=== PATIENT | female | born 1955 | race Caucasian/White ===

== ENCOUNTER 2021-06-04 09:24 | Emergency (ER) | payer OTHER ==
[2021-06-04 09:30] VITALS: PULSE 88; RESP 18; TEMP 97.9
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
--- NOTE | 2021-06-04 10:31 | XR ---
EXAMINATION TYPE: XR foot complete LT, 3 views DATE OF EXAM: 06/04/2021 Comparison: None Clinical History: 66-year-old female with lateral sided pain Findings: There is a nondisplaced transverse fracture proximal fifth metatarsal shaft. Bipartite tibial sesamoi d. No additional acute fracture, subluxation, or dislocation seen. Impression: Nondisplaced transverse fracture proximal shaft of the fifth metatarsal. Given location of the fractu re, recommend appropriate orthopedic follow-up to ensure satisfactory healing.
[2021-06-04 11:32] VITALS: BP 118/90
== END 2021-06-04 11:32 | disposition home or self-care (01) ==
LOC: EC 09:24
DX: S92.355A Nondisplaced fracture of fifth metatarsal bone, left foot, initial encounter for closed fracture (principal); I10 Essential (primary) hypertension; V18.0XXA Pedal cycle driver injured in noncollision transport accident in nontraffic accident, initial encounter; Y93.89 Activity, other specified
CPT/HCPCS: 99283

== ENCOUNTER → 2024-10-11 | Day surgery (SDC) | payer MEDICARE, OTHER ==
--- NOTE | 2024-10-18 11:46 | MM ---
Reason for Exam: Post Procedure Mammogram. Risk Values: Cristina 5 year model risk: 1.1%. NCI Lifetime model risk: 3.3%. Tissue Density: Right: The breasts are heterogeneously dense, which may obscure small masses. Pathology Description: Location: 8 o'clock. Needle Type: Mammotome Cores: 4 Pathology Description: Location: 7 o'clock. Marker Left Behind. Needle Type: Mammotome Cores: 4 The procedure of ultrasound guided core biopsy was explained to the patient. Benefits, alternatives, and risks were discussed. An informed consent was then obtained. The patient was placed in supine positioning for imaging and for the procedure. The overlying skin was prepped and draped in usual sterile fashion. Lidocaine buffered with bicarbonate was used as anesthetic into the skin and subcutaneous tissue up to area of concern at each site in the right breast in turn. A: 7:00, 1.1 cm lesion: Under ultrasound guidance, a 13-gauge vacuum-assisted mammotome Elite biopsy gun device was used to obtain 4 core samples. Following this, a Butterfly biopsy clip was left in lesion. B: 8:00, 8 mm lobulated lesion: Under ultrasound guidance, a 13-gauge vacuum-assisted mammotome Elite biopsy gun device was used to obtain 4 core samples. Following this, a Coil biopsy clip was left in lesion. C: 8:00, 3 mm lesion too small to accurately characterize. Located within 2 cm of lesion 'B.' Not biopsied. The patient tolerated the procedure well without any immediate complication. The patient was kept in the radiology department for short stay after the procedure and then discharged home in stable condition. Postprocedure mammogram: The patient was transferred to mammography for physician ordered post procedure mammogram for clip placement verification. Post procedure mammogram demonstrates appropriate placement of clip. 8:00 coil clip corresponds to the centrally located mammographic mass. The 7:00 butterfly clip is located at a posterior depth. IMPRESSION: Successful, uncomplicated ultrasound guided core biopsy of two lesions in the right breast, mammographic correlates. Note a third lesion at 8:00 which was not biopsied given tiny 3 mm size and location within 2 cm of the other 8:00 lesion. Full pathology results to follow. [facility], , 10/11/2024 2:47 PM. Pathology Results: Result: Malignant, Invasive ductal carcinoma. A. RIGHT BREAST, SEVEN O'CLOCK, ULTRASOUND GUIDED CORE BIOPSY: Invasive Grade 2 ductal carcinoma with focal mucinous features (see Surgical Pathology Cancer Case Summary and Comment). B. RIGHT BREAST, EIGHT O'CLOCK, ULTRASOUND GUIDED CORE BIOPSY: Invasive ductal carcinoma with focal mucinous features, Grade 2. (See Surgical Pathology Cancer Case Summary and Comment). Separate fragment of atypical papillary lesion present. Overall Assessment: Malignant Assessment: MG diagnostic mammo RT wo CAD - Right: Known biopsy proven malignancy, BI-RAD 6. Management: Surgical Consultation of the right breast. Electronically signed and approved by: Jose Mckeon M.D. Radiologist
== END ==
LOC: RADUSWWP 12:39
PROVIDERS: ATTEND Internal Medicine
DX: C50.511 Malignant neoplasm of lower-outer quadrant of right female breast (principal); Z17.0 Estrogen receptor positive status [ER+]; Z17.21 Progesterone receptor positive status; Z17.32 Human epidermal growth factor receptor 2 negative status
CPT/HCPCS: 88305; 88342; 88341; 77065; 19083; 19084; A4648

== ENCOUNTER → 2024-10-22 | Outpatient (CLI) | payer MEDICARE ==
[2024-10-22 10:42] VITALS: PULSE 109; RESP 17; TEMP 97.9
--- NOTE | 2024-10-22 11:16 | P.GSCN ---
History of Present Illness Consult date: 10/22/24 Reason for Consult: Invasive ductal carcinoma right breast 7:00 and 8 o'clock position Requesting physician: James Ríos History of present illness: Beena is a 69-year-old female seen in consultation for Dr. Ríos regarding a biopsy-proven right breast invasive ductal carcinoma. She underwent a bilateral screening mammogram on 09-08-2024. This did not reveal any lesions of concern in the left breast but in the right breast several small masses were identified. An ultrasound was recommended. An ultrasound was performed on 09-14-2024. This revealed multiple lesions at 8:00 2 cm from the nipple thought to represent 3 individual lesions. Irregular mass at 8:00 was noted as well as a probable cluster of cysts at 8:00. Biopsy was recommended of the mass and 6-month follow-up of the other areas. The patient on 10-11-2024 underwent an ultrasound-guided core biopsy of the 7 and 8 o'clock position of the right breast. At the 7 o'clock position there was a 1.1 cm lesion and biopsy of this was consistent with invasive grade 2 ductal carcinoma with focal mucinous features Lesion at 8:00 revealed an 8 mm lobulated lesion and a biopsy of this revealed invasive ductal carcinoma with focal mucinous features. Separate fragment of atypical papillary lesion was identified. A third lesion at 8:00 3 mm was too small to accurately characterize. The biopsy at 7:00 had a butterfly clip against the chest wall placed in the biopsy at 8:00 had a coil clip placed. The lesions are 2.7 cm apart. The radiographs were personally reviewed with Dr. Zaragoza and discussed. She did not feel anything in her breast prior to the mammogram. Has never had any surgery on her breast and no breast biopsies. She is not complaining of any nipple discharge or skin changes. She has not had any recent trauma or infection in her breast. She gets mammograms on a yearly basis. Caffeine: occasional nicotien: none chocolate: daily BCP: used for about < 2 years Family History: maternal grandfather: skin cancer paternal aunt: ? breast cancer Hormonal History: menarche: 11 M1 breast fed: no, age at first : 29 menopause: hysterectomy late 40's too ovaries, no hormones after, done for bleeding Surgical History: CELE BSO left hip replacement Medical History: broke left foot hypothyroid high cholesterol osteoporosis Social History; nicotine: none alcohol: none drugs: none Review of Systems - Constitutional Denies fever, Denies weight loss - EENT Eyes: denies blurred vision Ears: deny: decreased hearing, tinnitus Ears, nose, mouth and throat: Denies dysphagia - Breasts bilateral: as per HPI - Cardiovascular Denies chest pain, Denies shortness of breath - Respiratory Denies cough, Denies 7 - Gastrointestinal Reports as per HPI - Genitourinary Genitourinary: Denies dysuria, Denies hematuria Menstruation: Reports post hysterectomy - Musculoskeletal Reports as per HPI - Integumentary Denies rash, Denies unusual bruising - Neurological Denies headaches, Denies syncope - Psychiatric Reports as per HPI - Endocrine Reports as per HPI - Hematologic/Lymphatic Reports as per HPI, Denies easy bleeding, Denies easy bruising Hematologic/Lymphatic Comment(s): takes baby aspirin - Allergic/Immunologic Reports as per HPI Past Medical History Past Medical History: Hyperlipidemia, Hypertension, Osteoarthritis (OA), Thyroid Disorder History of Any Multi-Drug Resistant Organisms: None Reported Past Surgical History: Hysterectomy, Orthopedic Surgery Additional Past Surgical History / Comment(s): Left hip replacement. Past Anesthesia/Blood Transfusion Reactions: No Reported Reaction Past Psychological History: Depression Additional Psychological History / Comment(s): past history, not current Smoking Status: Never smoker Past Alcohol Use History: Rare Past Drug Use History: None Reported Medications and Allergies Home Medications Medication Instructions Recorded Confirmed Type Aspirin [Children's Aspirin] 81 mg PO DAILY 09/23/24 10/22/24 History Cholecalciferol (Vitamin D3) 1,250 mcg PO DAILY 09/23/24 10/22/24 History [Vitamin D3 (1250 Mcg = 50,000 Iu)] Fenofibrate Nanocrystallized 48 mg PO DAILY 09/23/24 10/22/24 History [Fenofibrate] Glucosamine/Chondr Celaya A Sod [Osteo 1 each PO DAILY 09/23/24 10/22/24 History Bi-Flex Caplet] Ibandronate Sodium [Boniva] 150 mg PO QMONTHLY 09/23/24 10/22/24 History Levothyroxine Sodium [Synthroid] 125 mcg PO DAILY 09/23/24 10/22/24 History Losartan Potassium 50 mg PO DAILY 09/23/24 10/22/24 History Simvastatin 40 mg PO DAILY 09/23/24 10/22/24 History Allergies Allergy/AdvReac Type Severity Reaction Status Date / Time No Known Allergies Allergy Verified 10/22/24 10:37 Surgical - Exam Vital Signs Temp Pulse Resp Pulse Ox 97.9 F 109 H 17 99 10/22/24 10:38 10/22/24 10:38 10/22/24 10:38 10/22/24 10:38 - General moderate distress - Eyes normal ocular movement - ENT no hearing loss - Neck trachea midline - Respiratory normal respiratory effort, clear to auscultation - Cardiovascular Rhythm: regular Heart Sounds: normal: S1, S2 - Abdomen Abdomen: soft, non tender, no guarding, no rigid, no rebound - Integumentary normal turgor - Neurologic no disoriented, no combative - Musculoskeletal normal gait - Psychiatric oriented to time, oriented to person, oriented to place, speech is normal, memory intact Breast Exam: 38C Inspection: bilateral grade 2 ptosis, rash right breast near biopsy site; right periareolar site echymosis Right breast palpation: Multi positional exam postbiopsy changes periareolar region, no dominant masses or nodules of concern, upper outer quadrant slight fullness Right axilla: No adenopathy of concern Left breast: Multi positional exam no dominant masses or nodules of concern Left axilla: No adenopathy of concern Results Mammogram and ultrasound personally reviewed and interpreted, discussed with Dr. Gonzáles from radiology Assessment and Plan Assessment: Impression: Stage Ia invasive ductal carcinoma right breast 2 sites at 7 and 8:00, the approximately 3 cm apart from each other Third area of concern was not seen to be able to be biopsied Plan: MRI of the breast Presentation of case at tumor board CC: Dfr. Ríos
== END ==
LOC: WWCWWP 10:27
PROVIDERS: ATTEND Surgery
DX: C50.911 Malignant neoplasm of unspecified site of right female breast (principal)

== ENCOUNTER 2024-12-14 08:18 | Day surgery (SDC) | payer MEDICARE ==
[2024-12-14] MEDS: ACETAMINOPHEN TAB 500 MG TAB PO PRN (09:26)
--- NOTE | 2024-12-14 09:33 | P.NAPBC ---
NAPBC Queries - NAPBC Queries Was patient's case review presented at [facility] tumor board? If no, comment.: Yes Was patient's pathology reviewed at [facility]? If no, comment.: Yes Was breast conservation surgery offered? If no, comment.: Yes Was sentinel node biopsy offered? If no, comment.: Yes Was diagnosis confirmed by percutaneous core biopsy? If no, comment.: Yes Is patient mastectomy patient?: Yes Was a preop referral to reconstructive surgeon offered?: No (ofered but patient declined) Clinical Stage: two sites right breast stage 1A, possible contiguous on MRI [id number] at two sites 7 and 8 OClock
[2024-12-14] MEDS: DEXAMETHASONE SOD PHOSPHATE 4 MG/ML 1 ML VIAL IV ONE (09:34)
[2024-12-14] MEDS: ONDANSETRON 4 MG/2 ML VIAL IVP ONE (09:34)
[2024-12-14] MEDS: LACTATED RINGERS 1,000 ML IV SCH (09:34)
[2024-12-14] MEDS: IV FLUID CONTINUATION 1,000 ML IV ONE ×2 (09:37→14:37)
[2024-12-14] MEDS: MIDAZOLAM 2 MG/2 ML VIAL IV ONE (09:53)
[2024-12-14] MEDS: fentaNYL (PF) 50 MCG/ML 2 ML AMP IVP PRN (09:54)
[2024-12-14] MEDS: HEPARIN SODIUM,PORCINE 5,000 UNIT/ML 1 ML VIAL SQ PRN (10:08)
[2024-12-14] MEDS ORDERED: SUCCINYLCHOLINE CHLORIDE 200 MG/10 ML VIAL IV ONE (10:57)
[2024-12-14] MEDS ORDERED: fentaNYL (PF) 50 MCG/ML 2 ML AMP ONE (10:57)
[2024-12-14] MEDS ORDERED: PROPOFOL 10 MG/ML 20 ML VIAL IV ONE (10:57)
[2024-12-14] MEDS ORDERED: PHENYLEPHRINE-0.9% NACL SYG 1,000 MCG/10 ML SYRINGE ONE (10:57)
[2024-12-14] MEDS ORDERED: SODIUM CHLORIDE 0.9% (PF) 10 ML VIAL ONE (10:57)
[2024-12-14] MEDS ORDERED: HYDROmorphone (PF) 1 MG/ML ONE (10:57)
[2024-12-14] MEDS ORDERED: DEXAMETHASONE SOD PHOSPHATE 4 MG/ML 1 ML VIAL ONE (10:57)
[2024-12-14] MEDS ORDERED: MIDAZOLAM 2 MG/2 ML VIAL ONE (10:57)
[2024-12-14] MEDS ORDERED: LIDOCAINE 1% INJ 10MG/ML (20 ML MDV) ONE (10:57)
[2024-12-14] MEDS ORDERED: ROPIVACAINE 5 MG/ML 30 ML VIAL ONE (10:57)
[2024-12-14] MEDS: METHYLENE BLUE 50 MG/10 ML AMPUL MISCELLANE ONE ×2 (11:15)
--- NOTE | 2024-12-14 11:25 | NM ---
EXAMINATION TYPE: NM sentinel node injection DATE OF EXAM: 12/14/2024 COMPARISON: NONE CLINICAL INDICATION: Female, 69 years old with history of RIGHT BREAST CA; TECHNIQUE AND FINDINGS: The procedure of sentinel lymph node injection was explained to the patient. The benefits, alternatives, and risks were discussed. An informed consent was then obtained. Overlying skin is cleaned with sterile alcohol. Following this, 498 uCi Tc99m Tilmanocept was inject ed in the upper outer aspect of the right nipple intradermally. The patient tolerated the procedure well without any immediate complication. The patient was kept in the radiology department for short stay after the procedure and then taken to surgery for surgical p rocedure what is presumed intraoperative gamma probe will be used for sentinel lymph node detection. IMPRESSION: Right breast radiotracer injection for sentinel node localization as above. [facility], , 12/14/2024 11:22 AM
[2024-12-14] MEDS ORDERED: ONDANSETRON 4 MG/2 ML VIAL IVP PRN (12:55)
[2024-12-14] MEDS ORDERED: NALOXONE 0.4 MG/ML 1 ML VIAL IV PRN (12:55)
[2024-12-14] MEDS ORDERED: HYDROmorphone 1 MG/ML 1 ML SYRINGE IVP PRN (12:55)
--- NOTE | 2024-12-14 12:55 | P.BCAON ---
Date of Procedure: 12/14/24 Preoperative Diagnosis: Right breast invasive ductal carcinoma 2 sites Postoperative Diagnosis: Same Procedure(s) Performed: Right mastectomy right sentinel node biopsy, right axillary mapping with methylene blue Anesthesia: TIGRE Surgeon: Renee Caba Estimated Blood Loss (ml): 10 IV fluids (ml): 600 Pathology: other (Right breast, sentinel node right) Condition: stable Disposition: floor Indications for Procedure: Right breast biopsy-proven invasive ductal carcinoma Operative Findings: Fibrofatty breast tissue Description of Procedure: The patient is a 69-year-old female with a biopsy-proven invasive ductal carcinoma at the 7 and 8 o'clock position of the breast. She opted for a mastectomy and a sentinel node biopsy. Preoperatively periareolar injection of radiotracer was placed. The patient was brought to the operative suite. Following induction of anesthesia the neoprobe was used to interrogate the axilla. Minimal radioactivity was identified in the axilla. Therefore 10 cc of half-strength methylene blue was injected into the periareolar region. The breast was massaged. The right breast and axilla were prepped and draped in a sterile fashion. A superior skin flap was developed. This was carried down to the pectoralis muscle. Hemostasis was attained using the electrocautery device as well as the harmonic scalpel. Following this an inferior skin flap was devel oped. Hemostasis was attained using the electrocautery device. The dissection was performed down to the pectoralis muscle. The breast was brought from medial to lateral off the pectoralis muscle maintaining hemostasis using the electrocautery device and the harmonic scalpel. Dissection was performed to the level of the axilla. Using the neoprobe radioactivity was identified in the right axilla. Dissection was performed down to the site. The patient was noted to have a blue lymph node at that site. That site was resected. The 10-second count on that was 1006. Following this the background count was noted to be 27. No other palpable or radioactive or blue lymph nodes were identified. The wound was well irrigated. Several areas of bleeding were identified and cauterized or controlled using the ed scalpel. 1 vessel was suture-ligated in the axilla. Surgicel in powder form was placed. A #10 JUAN PABLO drain was placed. The drain was secured using nylon suture. The subcutaneous tissue was secured using interrupted 3-0 Vicryl suture. This was followed by running 3-0 Vicryl suture. 4-0 Monocryl suture was placed. 20 cc of 1% lidocaine were used to anesthetize the area. Surgical glue was placed. Sterile dressings were applied. All instrument and sponge counts were correct at the end of the case. The patient tolerated the procedure in stable condition. - Sentinal Node Biopsy Operation performed with curative intent: Yes Tracer(s) used in upfront surgery (non-neoadjuvant): dye, radioactive tracer Tracer(s) used in the neoadjuvant setting: N/A All nodes present at end of dye-filled channel removed: Yes All significantly radioactive nodes were removed: Yes All palpably suspicious nodes were removed: Yes
[2024-12-14] MEDS: LIDOCAINE 1% INJ 10MG/ML (20 ML MDV) SQ ONE ×2 (12:56→13:02)
[2024-12-14] MEDS: HYDROmorphone 0.5 MG/0.5 ML SYRINGE IVP PRN (14:22)
--- NOTE | 2024-12-14 14:33 | P.ANPRN ---
Procedure Note - Anesthesia - Nerve Block Performed Right Erector Spinae Single Time Out Performed: Yes Date of Procedure: 12/14/23 Procedure Start Time: :53 Procedure Stop Time: :59 Location of Patient: PreOp Indication: Acute Post-Operative Pain, Requested by Surgeon Sedation Type: Sedate with meaningful contact maintained Preparation: Sterile Prep Position: Prone Needle Types: Pajunk Needle Gauge: 21 Ultrasound used to visualize needle placement: Yes Ultrasound used to observe medication spread: Yes Blood Aspirated: No Pain Paresthesia on Injection Noted: No Resistance on Injection: Normal Image Stored and Saved: Yes Events: Uneventful and Well Tolerated (Ropivacaine 0.5% 15 cc plus normal saline 10 cc plus dexamethasone 4 mg given at T6 on the right side)
[2024-12-14] MEDS: HEPARIN SODIUM,PORCINE 5,000 UNIT/ML 1 ML VIAL SQ SCH (16:38)
[2024-12-15 00:23] VITALS: RESP 16
[2024-12-15] MEDS: HYDROcodone/APAP 5-325MG 1 EACH TAB PO PRN (00:24)
[2024-12-15] MEDS: DEXTROSE 5%-0.45% NACL 1,000 ML IV SCH (00:32)
[2024-12-15 06:58] LABS: Basophils % (A) 0 %; Eosinophils % (A) 0 %; HCT 39.9 % (34.0-46.0); HGB 12.3 gm/dL (11.4-16.0); Lymphocytes # (A) 1.2 k/uL (1.0-4.8); Lymphocytes % (A) 12 %; MCH 28.2 pg (25.0-35.0); MCHC 30.8 g/dL (31.0-37.0); MCV 91.4 fL (80.0-100.0); Mean Platelet Volume 7.5; Monocytes # (A) 0.6 k/uL (0-1.0); Monocytes % (A) 6 %; Neutrophils # (A) 8.2 k/uL (1.3-7.7); Neutrophils % (A) 80 %; Platelet Count 283 k/uL (150-450); RBC 4.36 m/uL (3.80-5.40); RDW 13.3 % (11.5-15.5); WBC 10.2 k/uL (3.8-10.6)
[2024-12-15 08:22] VITALS: BP 109/67; PULSE 66; TEMP 97.6
[2024-12-15] MEDS ORDERED: FENOFIBRATE 54 MG TAB PO SCH (10:00)
[2024-12-15] MEDS ORDERED: NON FORMULARY DRUG (Cholecalciferol (Vitamin D3) [Vitamin D3 (1250 Mcg = 50,000 Iu)] 1,250 PO SCH (10:00)
[2024-12-15] MEDS ORDERED: ATORVASTATIN 20 MG TAB PO SCH (10:00)
--- NOTE | 2024-12-15 11:11 | P.PN ---
Subjective Progress Note Date: 12/15/24 Principal diagnosis: Right breast multifocal invasive ductal carcinoma Beena is a 69-year-old female status post right mastectomy for multifocal invasive ductal carcinoma. She is postop day #1. White count 10.2. Hemoglobin 12.3. JUAN PABLO drain output minimal. She is tolerating diet without difficulty. Her pain is under control. Objective - Vital Signs Vital signs: Vital Signs Temp 97.6 F 12/15/24 08:00 Pulse 66 12/15/24 08:00 Resp 16 12/15/24 08:00 BP 109/67 12/15/24 08:00 Pulse Ox 96 12/15/24 08:00 FiO2 Intake & Output 12/14/24 12/15/24 12/15/24 18:59 06:59 18:59 Intake Total 1300 Output Total 10 Balance 1290 Weight 80.1 kg Intake: IV 1300 Output: Estimated Blood Loss 10 Other: # Voids 2 - Constitutional General appearance: Present: cooperative - EENT Eyes: Present: EOMI ENT: Present: hearing grossly normal - Neck Neck: Present: normal ROM - Respiratory Respiratory: bilateral: CTA - Cardiovascular Heart sounds: normal: S1, S2 - Integumentary Integumentary Comment(s): Patient right chest wall clean and dry, no evidence of seroma or hematoma JUAN PABLO drain minimal output serous in nature Integumentary: Present: normal turgor - Labs CBC & Chem 7: 12/15/24 06:20 Labs: Abnormal Lab Results - Last 24 Hours (Table) 12/15/24 Range/Units 06:20 MCHC 30.8 L (31.0-37.0) g/dL Neutrophils # 8.2 H (1.3-7.7) k/uL Assessment and Plan Assessment: Impression: Patient doing well postop day #1 Plan: Discharge patient home Follow-up Dr. Gallardo 2 days possible drain removal
[2024-12-16] MEDS ORDERED: LEVOTHYROXINE 125 MCG TAB PO SCH (06:30)
--- NOTE | 2024-12-16 20:12 | P.ANPRN ---
Procedure Note - Anesthesia - Nerve Block Performed Right Erector Spinae Single Time Out Performed: Yes Date of Procedure: 12/14/24 Procedure Start Time: :53 Procedure Stop Time: :59 Location of Patient: PreOp Indication: Acute Post-Operative Pain, Requested by Surgeon Sedation Type: Sedate with meaningful contact maintained Preparation: Sterile Prep Position: Prone Needle Types: Pajunk Needle Gauge: 21 Ultrasound used to visualize needle placement: Yes Ultrasound used to observe medication spread: Yes Blood Aspirated: No Pain Paresthesia on Injection Noted: No Resistance on Injection: Normal Image Stored and Saved: Yes Events: Uneventful and Well Tolerated (Ropivacaine 0.5% 15 cc plus normal saline 10 cc plus dexamethasone 4 mg given at T6 on the right side)
== END 2024-12-15 12:10 | disposition home or self-care (01) ==
LOC: OR 08:18 → 4FBP 13:34 → OR 12-15 12:10
PROVIDERS: ATTEND Surgery
DX: D05.11 Intraductal carcinoma in situ of right breast (principal); I10 Essential (primary) hypertension; E78.2 Mixed hyperlipidemia; E03.9 Hypothyroidism, unspecified; E83.52 Hypercalcemia; M19.90 Unspecified osteoarthritis, unspecified site; R73.03 Prediabetes; M81.0 Age-related osteoporosis without current pathological fracture; Z89.622 Acquired absence of left hip joint; Z90.710 Acquired absence of both cervix and uterus; Z01.89 Encounter for other specified special examinations; Z79.890 Hormone replacement therapy; Z79.82 Long term (current) use of aspirin; Z79.899 Other long term (current) drug therapy
CPT/HCPCS: 64999; 85025; 88342; 88307; 88309; 88341; 38792; 38500; 19303; A9520; J2250; J0330; J1644 ×2; J1100; J0690; J2405; J2003; J3010; J1171 ×2; J2795; J2704; Q9968; J2371

== ENCOUNTER → 2024-12-17 | Outpatient (CLI) | payer MEDICARE ==
[2024-12-17 12:03] VITALS: BP 158/93; PULSE 108; RESP 16; TEMP 98.9
--- NOTE | 2024-12-17 12:32 | P.BCPO ---
Progress Note - Text Progress Note Date: 12/17/24 Beena is a 69 year old female status post right mastectomy on 12 14 24. Postoperatively she is doing well. Her JUAN PABLO drain is not putting anything out. Lungs: Clear Heart: Regular rate and rhythm Incision: Clean and dry Seroma under flap Impression: Patient doing well postop pathology is pending JUAN PABLO drain is not working Plan: Remove JUAN PABLO drain Aspirate seroma JUAN PABLO drain was removed and upon removal there was serous fluid which came out from the JUAN PABLO site Following informed consent the area of concern of seroma was prepped using alcohol. An 18-gauge needle and a 20 cc syringe was used to aspirate 40 cc of dark-colored fluid. There appeared to be complete resolution of the seroma. The patient tolerated the procedure in stable condition. Plan: Follow-up next week Post Op Education - Post Op Education Post Op Education Provided Date: 12/17/24
== END ==
LOC: WWCWWP 11:31
PROVIDERS: ATTEND Surgery
DX: Z90.11 Acquired absence of right breast and nipple (principal)

== ENCOUNTER → 2024-12-23 | Outpatient (CLI) | payer MEDICARE ==
[2024-12-23 10:44] VITALS: BP 147/94; PULSE 97; RESP 17; TEMP 97.6
--- NOTE | 2024-12-23 10:58 | P.PN ---
Subjective Progress Note Date: 12/23/24 12-23-24 Beena is a 69 year old female status post right mastectomy on 12 14 24. Postoperatively she is doing well. Her JUAN PABLO drain was removed. Tumor multifocal invasive ductal cancer, two sites with DCIS. 5 nodes all (-). Largest tumor site 4 cm second site 18mm and DCIS 11 mm. Lungs: Clear Heart: Regular rate and rhythm Incision: Clean and dry Seroma under flap Impression: Patient doing well postop pathology is pending Plan: Aspirate seroma Appointment medical oncology/Oncotype to be done on the specimen Appointment radiation oncology Following informed consent the area of concern of seroma was prepped using alcohol. An 18-gauge needle and a 20 cc syringe was used to aspirate cc of straw-colored fluid. There appeared to be complete resolution of the seroma. The patient tolerated the procedure in stable condition. Plan: Manage Follow-up radiation oncology Follow-up here in 1 week Oncotype to be performed on the specimen Additional CC's: James Ríos Objective - Vital Signs Vital signs: Intake & Output 12/22/24 12/23/24 12/23/24 18:59 06:59 18:59 Weight 77.111 kg Assessment and Plan Assessment: Plan: follow up medical oncology follow up medical oncology follow up next week here CC: DR. Ríos
== END ==
LOC: WWCWWP 09:58
PROVIDERS: ATTEND Surgery
DX: D05.11 Intraductal carcinoma in situ of right breast (principal); Z12.31 Encounter for screening mammogram for malignant neoplasm of breast; Z90.11 Acquired absence of right breast and nipple

== ENCOUNTER → 2024-12-30 | Outpatient (CLI) | payer MEDICARE ==
[2024-12-30 14:34] VITALS: BP 137/85; PULSE 77; RESP 16; TEMP 98.3
--- NOTE | 2024-12-30 14:50 | P.PN ---
Subjective Progress Note Date: 12/30/24 12/30/24 Beena is a 69 year old female status post right mastectomy on 12 14 24. Postoperatively she is doing well. Her JUAN PABLO drain was removed. Tumor multifocal invasive ductal cancer, two sites with DCIS. 5 nodes all (-). Largest tumor site 4 cm second site 18mm and DCIS 11 mm. Lungs: Clear Heart: Regular rate and rhythm Incision: Clean and dry Seroma under flap Impression: Patient doing well postop pathology is pending Plan: Aspirate seroma Appointment medical oncology/Oncotype to be done on the specimen Appointment radiation oncology Following informed consent the area of concern of seroma was prepped using alcohol. An 18-gauge needle and a 20 cc syringe was used to aspirate 100 cc of straw-colored fluid. There appeared to be complete resolution of the seroma. The patient tolerated the procedure in stable condition. Plan: Manage Follow-up radiation oncology on 01-11-25 Follow-up here in 1 week Oncotype to be performed on the specimen follow up medical oncology Dr. Frost seen and waiting for the oncotype CC: DR. Ríos Additional CC's: James Ríos Objective - Vital Signs Vital signs: Vital Signs Temp 98.3 F 12/30/24 14:31 Pulse 77 12/30/24 14:31 Resp 16 12/30/24 14:31 BP 137/85 12/30/24 14:31 Pulse Ox 97 12/30/24 14:31 FiO2 Intake & Output 12/29/24 12/30/24 12/30/24 18:59 06:59 18:59 Weight 77.111 kg
== END ==
LOC: WWCWWP 13:25
PROVIDERS: ATTEND Surgery
DX: Z90.12 Acquired absence of left breast and nipple (principal)

== ENCOUNTER → 2025-01-06 | Outpatient (CLI) | payer MEDICARE ==
[2025-01-06 08:46] VITALS: BP 146/86; PULSE 75; RESP 16; TEMP 97.9
--- NOTE | 2025-01-06 09:25 | P.PN ---
Subjective Progress Note Date: 01/06/25 01/06/25 Beena is a 69 year old female status post right mastectomy on 12 14 24. Postoperatively she is doing well. Her JUAN PABLO drain was removed. Tumor multifocal invasive ductal cancer, two sites with DCIS. 6 nodes all (-). Largest tumor site 4 cm second site 18mm and DCIS 11 mm. Lungs: Clear Heart: Regular rate and rhythm Incision: Clean and dry Seroma under flap 12-30-24 seroma aspirated 100 cc Impression: Patient doing well postop Plan: Aspirate seroma Appointment medical oncology/Oncotype to be done on the specimen Appointment radiation oncology Following informed consent the area of concern of seroma was prepped using alcohol. An 18-gauge needle and a 20 cc syringe was used to aspirate 320 cc of straw-colored fluid. There appeared to be complete resolution of the seroma. The patient tolerated the procedure in stable condition. Plan: Manage Follow-up radiation oncology on 01-11-25 Follow-up here in 2 weeks Oncotype to be performed on the specimen/ done was 6 follow up medical oncology Dr. Frost to be seen again CC: DR. Ríos Objective - Vital Signs Vital signs: Vital Signs Temp 97.9 F 01/06/25 08:44 Pulse 75 01/06/25 08:44 Resp 16 01/06/25 08:44 BP 146/86 01/06/25 08:44 Pulse Ox 98 01/06/25 08:44 FiO2 Intake & Output 01/05/25 01/06/25 01/06/25 18:59 06:59 18:59 Weight 77.111 kg
== END ==
LOC: WWCWWP 08:27
PROVIDERS: ATTEND Surgery
DX: Z90.11 Acquired absence of right breast and nipple (principal)

== ENCOUNTER → 2025-01-13 | Outpatient (CLI) | payer MEDICARE ==
[2025-01-13 10:34] VITALS: BP 117/69; PULSE 100; RESP 16; TEMP 97.8
--- NOTE | 2025-01-13 10:43 | P.PN ---
Subjective Progress Note Date: 01/13/25 01/13/25 Beena is a 69 year old female status post right mastectomy on 12 14 24. Postoperatively she is doing well. Her JUAN PABLO drain was removed. Tumor multifocal invasive ductal cancer, two sites with DCIS. 6 nodes all (-). Largest tumor site 4 cm second site 18mm and DCIS 11 mm. Lungs: Clear Heart: Regular rate and rhythm Incision: Clean and dry Seroma under flap 12-30-24 seroma aspirated 100 cc 01-06-25 seeroma 320 cc aspirated 01-13-25: seroma 275 CC aspirated Impression: Patient doing well postop Plan: Aspirate seroma Appointment medical oncology/Oncotype to be done on the specimen Appointment radiation oncology/she met with radiation oncology and does not need any radiation therapy. Following informed consent the area of concern of seroma was prepped using alcohol. An 18-gauge needle and a 20 cc syringe was used to aspirate 275 cc of straw-colored fluid. There appeared to be complete resolution of the seroma. The patient tolerated the procedure in stable condition. Plan: Manage Follow-up radiation oncology on 01-11-25 done no radiation needed Follow-up here in 1 weeks Oncotype to be performed on the specimen/ done was 6; no chemotherapy follow up medical oncology Dr. Frost to be seen again CC: DR. Ríos
== END ==
LOC: WWCWWP 08:39
PROVIDERS: ATTEND Surgery
DX: D05.10 Intraductal carcinoma in situ of unspecified breast (principal); Z90.11 Acquired absence of right breast and nipple

== ENCOUNTER → 2025-01-20 | Outpatient (CLI) | payer MEDICARE ==
[2025-01-20 09:01] VITALS: BP 127/85; PULSE 102; RESP 16; TEMP 97.9
--- NOTE | 2025-01-20 09:35 | P.PN ---
Subjective Progress Note Date: 01/20/25 Principal diagnosis: infected seroma 01-20-25 Beena is a 69 year old female status post right mastectomy on 12 14 24. Postoperatively she is doing well. Tumor multifocal invasive ductal cancer, two sites with DCIS. 6 nodes all (-). Largest tumor site 4 cm second site 18mm and DCIS 11 mm. This notice some erythema/ pink of the medial aspect of the mastectomy site, and she has swelling again consistent with a seroma. She is not complaining of any fever or chills. oncotype [address] Frost reviewed: 12-27-24; adjuvant hormone therapy and possible CDK inhibitor Lungs: Clear Heart: Regular rate and rhythm Incision: Clean and dry Seroma under flap 12-30-24 seroma aspirated 100 cc 01-06-25 seeroma 320 cc aspirated 01-13-25: seroma 275 CC aspirated 01-20-25 purulent tissue 125 cc aspirated, resolution fluid Impression: post op infected seroma right breast Plan: Specimen was 6 she does not need any chemotherapy Keflex 500 mg 1 p.o. 4 times daily for 10 days Aspirate seroma Cultures obtained on fluid Follow-up next week Oral antibiotics If she does not respond to the oral antibiotic she will be seen in the emergency room, if necessary we would do I&D of the area in the operating room however on today's evaluation the fluid was aspirated and we will give an attempt of oral antibiotic therapy Appointment radiation oncology/she met with radiation oncology and does not need any radiation therapy. Following informed consent the area of concern of seroma was prepped using alcohol. An 18-gauge needle and a 20 cc syringe was used to aspirate 125 cc of turbid fluid there appeared to be complete resolution of the seroma. The patient tolerated the procedure in stable condition. CC: DR. Ríos Additional CC's: James Ríos Objective - Vital Signs Vital signs: Vital Signs Temp 97.9 F 01/20/25 08:59 Pulse 102 H 01/20/25 08:59 Resp 16 01/20/25 08:59 BP 127/85 01/20/25 08:59 Pulse Ox 95 01/20/25 08:59 FiO2 Intake & Output 01/19/25 01/20/25 01/20/25 18:59 06:59 18:59 Weight 77.111 kg
== END ==
LOC: WWCWWP 08:32
PROVIDERS: ATTEND Surgery
DX: L76.34 Postprocedural seroma of skin and subcutaneous tissue following other procedure (principal); Z85.3 Personal history of malignant neoplasm of breast; Z90.13 Acquired absence of bilateral breasts and nipples
CPT/HCPCS: 87070; 87075; 87205

== ENCOUNTER 2025-01-21 18:31 | Inpatient (IN) | payer MEDICARE ==
[2025-01-21] MEDS ORDERED: VANCOMYCIN IV PER PHARMACY 1 EACH MISC MISCELLANE PRN (19:31)
--- NOTE | 2025-01-21 19:37 | ED ---
General Adult HPI - General Chief complaint: Recheck/Abnormal Lab/Rx Stated complaint: post op infection Time Seen by Provider: 01/21/25 18:55 Source: patient, RN notes reviewed, old records reviewed Mode of arrival: ambulatory - History of Present Illness Initial comments: This is a 69-year-old female who presents to the emergency department complaining of of infection of the right breast. Patient had a mastectomy about 5 weeks ago and since then she has had to have the breast drained multiple times now its more red and tender and continues to drain. Patient states she started Keflex yesterday but is getting worse so she decided come to the emergency department. Patient states she has had a low-grade fever. Patient denies any chest pain difficulty breathing shortness of breath. Patient denies any other symptoms at this time. - Related Data Home Medications Medication Instructions Recorded Confirmed Aspirin [Children's Aspirin] 81 mg PO DAILY 09/23/24 01/21/25 Cholecalciferol (Vitamin D3) 1,250 mcg PO DAILY 09/23/24 01/21/25 [Vitamin D3 (1250 Mcg = 50,000 Iu)] Glucosamine/Chondr Celaya A Sod [Osteo 1 each PO DAILY 09/23/24 01/21/25 Bi-Flex Caplet] Levothyroxine Sodium [Synthroid] 125 mcg PO MOTUTHFRSA 09/23/24 01/21/25 Losartan Potassium 50 mg PO DAILY 09/23/24 01/21/25 Simvastatin 40 mg PO DAILY 09/23/24 01/21/25 Flaxseed Oil 1 dose PO DAILY 12/09/24 01/21/25 Unk Inflammation 95 1 dose PO DAILY 12/09/24 01/21/25 Zzzquil 5 ml PO HS PRN 12/09/24 01/21/25 Previous Rx's Medication Instructions Recorded Cephalexin [Keflex] 500 mg PO Q6HR 1 Days #40 cap 01/20/25 Allergies Allergy/AdvReac Type Severity Reaction Status Date / Time No Known Allergies Allergy Verified 01/21/25 18:50 Review of Systems ROS Statement: Those systems with pertinent positive or pertinent negative responses have been documented in the HPI. ROS Other: All systems not noted in ROS Statement are negative. Past Medical History Past Medical History: Cancer, Hyperlipidemia, Hypertension, Musculoskeletal Disorder, Osteoarthritis (OA), Thyroid Disorder Additional Past Medical History / Comment(s): Back pain, rightt breast cancer 10/22/24, had mastectomy. osteoporosis. History of Any Multi-Drug Resistant Organisms: None Reported Past Surgical History: Breast Surgery, Hysterectomy, Joint Replacement Additional Past Surgical History / Comment(s): Left hip replacement, colonoscopy, right mastectomy. Past Anesthesia/Blood Transfusion Reactions: No Reported Reaction Past Psychological History: Depression Smoking Status: Never smoker Past Alcohol Use History: None Reported Past Drug Use History: None Reported - Past Family History Father Family Medical History: COPD Additional Family Medical History / Comment(s): Emphysema- smoker. General Exam - General Exam Comments Initial Comments: GENERAL: Patient is well-developed and well-nourished. Patient is nontoxic and well- hydrated and is in mild distress. ENT: Neck is soft and supple. No significant lymphadenopathy is noted. Oropharynx is clear. Moist mucous membranes. Neck has full range of motion without eliciting any pain. EYES: The sclera were anicteric and conjunctiva were pink and moist. Extraocular movements were intact and pupils were equal round and reactive to light. Eyelids were unremarkable. PULMONARY: Unlabored respirations. Good breath sounds bilaterally. No audible rales rhonchi or wheezing was noted. CARDIOVASCULAR: There is a regular rate and rhythm without any murmurs gallops or rubs. ABDOMEN: Soft and nontender with normal bowel sounds. SKIN: Patient has an incision on the left breast that is red draining purulent drainage and very tender to palpate is also swollen NEUROLOGIC: Patient is alert and oriented x3. Cranial nerves II through XII are grossly intact. Motor and sensory are also intact. Normal speech, volume and content. Symmetrical smile. MUSCULOSKELETAL: Normal extremities with adequate strength and full range of motion. LYMPHATICS: No significant lymphadenopathy is noted PSYCHIATRIC: Normal psychiatric evaluation. Course Vital Signs 01/21/25 18:45 Temperature 99.1 F Pulse Rate 91 Respiratory 18 Rate Blood Pressure 146/81 O2 Sat by Pulse 95 Oximetry Medical Decision Making - Medical Decision Making EKG is interpreted by myself. EKG shows sinus rhythm at 86 bpm TN interval is 170 QRS is 80 QT interval 347 QTc is 390. Patient's EKG shows no ST segment elevation or depression. Was pt. sent in by a medical professional or institution (, PA, AIRCRAFT MECHANIC, urgent care, hospital, or prison...) When possible be specific @ -No Did you speak to anyone other than the patient for history (EMS, parent, family, police, friend...)? What history was obtained from this source @ -No Did you review nursing and triage notes (agree or disagree)? Why? @ -I reviewed and agree with nursing and triage notes Were old charts reviewed (outside hosp., previous admission, EMS record, old EKG, old radiological studies, urgent care reports/EKG's, prison records)? Report findings @ -No old charts were reviewed Differential Diagnosis? @ -Cellulitis, abscess, postop infection, this is not an all-inclusive list EKG interpreted by me (3pts min.). @ -As above X-rays interpreted by me (1pt min.). @ -None done CT interpreted by me (1pt min.). @ -None done U/S interpreted by me (1pt. min.). @ -None done What testing was considered but not performed or refused? (CT, X-rays, U/S, labs)? Why? @ -None What meds were considered but not given or refused? Why? @ -None Did you discuss the management of the patient with other professionals (professionals i.e. , PA, AIRCRAFT MECHANIC, lab, RT, psych nurse, social sciences instructor, periodicals clerk, te acher, bank operations officer, foster care case manager)? Give summary @ -I spoke with Dr. Kirkpatrick he agreed to admit the patient admit the patient wrote admitting orders Was smoking cessation discussed for >3mins.? @ -No Was critical care preformed (if so, how long)? @ -No Were there social determinants of health that impacted care today? How? (Homelessness, low income, unemployed, alcoholism, drug addiction, transpo rtation, low edu. Level, literacy, decrease access to med. care, fdc, rehab)? @ -No Was there de-escalation of care discussed even if they declined (Discuss DNR or withdrawal of care, Hospice)? DNR status @ -No What co-morbidities impacted this encounter? (DM, HTN, Smoking, COPD, CAD, Cancer, CVA, ARF, Chemo, Hep., AIDS, mental health diagnosis, sleep apnea, morbid obesity)? @ -None Was patient admitted / discharged? Hospital course, mention meds given and route, prescriptions, significant lab abnormalities, going to OR and other pertinent info. @ -Patient had an infection of the right breast it was draining purulent fluid. Cultures were taken. Patient was started on vancomycin and Rocephin Undiagnosed new problem with uncertain prognosis? @ -No Drug Therapy requiring intensive monitoring for toxicity (Heparin, Nitro, Insulin, Cardizem)? @ -No Were any procedures done? @ -No Diagnosis/symptom? @ -Postop cellulitis with abscess Acute, or Chronic, or Acute on Chronic? @ -Acute Uncomplicated (without systemic symptoms) or Complicated (systemic symptoms)? @ -Complicated Side effects of treatment? @ -No Exacerbation, Progression, or Severe Exacerbation? @ -No Poses a threat to life or bodily function? How? (Chest pain, USA, CT, pneumonia, PE, COPD, DKA, ARF, appy, cholecystitis, CVA, Diverticulitis, Homicidal, Suicidal, threat to staff... and all critical care pts) @ -Yes this could lead to sepsis and endorgan dysfunction - Lab Data Result diagrams: 01/21/25 20:04 01/21/25 20:04 Lab Results 01/21/25 01/21/25 01/21/25 Range/Units 20:04 20:04 20:04 WBC 9.3 (3.8-10.6) k/uL RBC 4.38 (3.80-5.40) m/uL Hgb 12.4 (11.4-16.0) gm/dL Hct 38.9 (34.0-46.0) % MCV 88.9 (80.0-100.0) fL MCH 28.4 (25.0-35.0) pg MCHC 31.9 (31.0-37.0) g/dL RDW 13.0 (11.5-15.5) % Plt Count 486 H (150-450) k/uL MPV 7.2 Neutrophils % 68 % Lymphocytes % 21 % Monocytes % 5 % Eosinophils % 3 % Basophils % 0 % Neutrophils # 6.2 (1.3-7.7) k/uL Lymphocytes # 2.0 (1.0-4.8) k/uL Monocytes # 0.5 (0-1.0) k/uL Eosinophils # 0.3 (0-0.7) k/uL Basophils # 0.0 (0-0.2) k/uL Sodium 139 (137-145) mmol/L Potassium 4.3 (3.5-5.1) mmol/L Chloride 102 (98-107) mmol/L Carbon Dioxide 27 (22-30) mmol/L Anion Gap 10 mmol/L BUN 18 H (7-17) mg/dL Creatinine 0.77 (0.52-1.04) mg/dL Est GFR (CKD-EPI)AfAm >90 (>60 ml/min/1.73 sqM) Est GFR (CKD-EPI)NonAf 78 (>60 ml/min/1.73 sqM) Glucose 109 H (74-99) mg/dL Plasma Lactic Acid Sher 1.0 (0.7-2.0) mmol/L Calcium 10.5 H (8.4-10.2) mg/dL Total Bilirubin 0.4 (0.2-1.3) mg/dL AST 28 (14-36) U/L ALT 31 (4-34) U/L Alkaline Phosphatase 81 (38-126) U/L Total Protein 7.5 (6.3-8.2) g/dL Albumin 4.2 (3.5-5.0) g/dL Disposition Clinical Impression: Postoperative infection of breast incision Disposition: ADMITTED IP TO THIS HOSP Referrals: James Ríos MD [Primary Care Provider] - 1-2 days Time of Disposition: 20:48
[2025-01-21] MEDS: cefTRIAXone IN SWFI 1,000 MG/10 ML SYRINGE IVP STA (20:10)
[2025-01-21] MEDS: LACTATED RINGERS 1,000 ML IV SCH (20:11)
[2025-01-21] MEDS: VANCOMYCIN 1,500 MG in SODIUM CHLORIDE 0.9% 500 ML 500 ML IVPB ONE (20:11)
[2025-01-21 20:32] LABS: Basophils % (A) 0 %; Eosinophils # (A) 0.3 k/uL (0-0.7); Eosinophils % (A) 3 %; HCT 38.9 % (34.0-46.0); HGB 12.4 gm/dL (11.4-16.0); Lymphocytes % (A) 21 %; MCH 28.4 pg (25.0-35.0); MCHC 31.9 g/dL (31.0-37.0); MCV 88.9 fL (80.0-100.0); Mean Platelet Volume 7.2; Monocytes # (A) 0.5 k/uL (0-1.0); Monocytes % (A) 5 %; Neutrophils # (A) 6.2 k/uL (1.3-7.7); Neutrophils % (A) 68 %; Platelet Count 486 k/uL (150-450); RBC 4.38 m/uL (3.80-5.40); WBC 9.3 k/uL (3.8-10.6)
[2025-01-21 20:35] LABS: ALT 31 U/L (4-34); AST 28 U/L (14-36); African American GFR (CKD) >90 (>60 ml/min/1.73 sqM); Albumin 4.2 g/dL (3.5-5.0); Alkaline Phosphatase 81 U/L (38-126); Anion Gap 10 mmol/L; Blood Urea Nitrogen 18 mg/dL (7-17); Calcium 10.5 mg/dL (8.4-10.2); Carbon Dioxide 27 mmol/L (22-30); Chloride 102 mmol/L (98-107); Glucose 109 mg/dL (74-99); Non-African American GFR(CKD) 78 (>60 ml/min/1.73 sqM); Potassium 4.3 mmol/L (3.5-5.1); Sodium 139 mmol/L (137-145); Total Bilirubin 0.4 mg/dL (0.2-1.3); Total Protein 7.5 g/dL (6.3-8.2)
[2025-01-21] MEDS: SODIUM CHLORIDE 0.9% 1,000 ML IV ONE (21:59)
[2025-01-22 06:01] LABS: INR 0.9 (<1.2); Partial Thromboplastin Time 24.3 sec (22.0-30.0); Prothrombin Time 10.5 sec (10.0-12.5)
[2025-01-22 06:02] LABS: African American GFR (CKD) >90 (>60 ml/min/1.73 sqM); Non-African American GFR(CKD) >90 (>60 ml/min/1.73 sqM)
[2025-01-22] MEDS: VANCOMYCIN 1,250 MG in SODIUM CHLORIDE 0.9% 250 ML IVPB SCH (08:50)
[2025-01-22] MEDS ORDERED: HYDROmorphone 0.5 MG/0.5 ML SYRINGE IVP PRN (15:17)
[2025-01-22] MEDS: LEVOTHYROXINE 125 MCG TAB PO SCH (15:54)
[2025-01-22] MEDS: ASPIRIN 81 MG PO SCH (15:54)
[2025-01-22] MEDS: HYDROcodone/APAP 5-325MG 1 EACH TAB PO PRN (22:35)
[2025-01-22] MEDS: ATORVASTATIN 20 MG TAB PO SCH (22:35)
[2025-01-22] MEDS: HEPARIN SODIUM,PORCINE 5,000 UNIT/ML 1 ML VIAL SQ SCH (22:36)
--- NOTE | 2025-01-22 23:43 | HP ---
HISTORY AND PHYSICAL CHIEF COMPLAINT: Infection of the right breast. HISTORY OF PRESENT ILLNESS: This is a 69-year-old woman who had a mastectomy 5 weeks ago, who was having some postoperative wound infection because of lack of improvement and increase of drainage. The patient came to [facility] and was admitted for further evaluation and treatment. White count is normal. There is no history of any fever, rigors, or chills. PAST MEDICAL HISTORY: Reviewed and includes history of hypertension, hyperlipidemia, recent surgery as mentioned. Rest of the chart is also reviewed. HOME MEDICATIONS: Simvastatin. Dose and rest of medications reviewed. ALLERGIES: None. FAMILY HISTORY: History of COPD. SOCIAL HISTORY: No history of smoking or alcohol. REVIEW OF SYSTEMS: Fourteen-point review of systems negative except as mentioned earlier. PHYSICAL EXAMINATION: VITAL SIGNS: Pulse is 90, blood pressure 147/98, respirations 18. HEENT: Conjunctivae normal. NECK: No JVD. CARDIOVASCULAR: S1, S2. RESPIRATIONS: Breath sounds diminished at the bases ABDOMEN: Soft and nontender. LEGS: No edema. SKIN: Shows right breast swelling and some drainage also present. LABORATORY DATA: Reviewed. ASSESSMENT: 1. Status post right mastectomy and postoperative wound infection with increased drainage. 2. Mild hypercalcemia. 3. Hypertension. 4. Hyperlipidemia. 5. History of thyroid disorder. 6. Multiple medical issues. RECOMMENDATIONS AND DISCUSSION: This is a 69-year-old woman, who presented with multiple complex medical issues. We will monitor the patient closely. Continue with the current medications. The patient is being started on vancomycin and Rocephin at this time. I will recommend Infectious Disease evaluation. Closely follow up with Surgery. Guarded prognosis because of multiple complex medical conditions. Further recommendations to follow. See orders for further details. MMODL / IJN: [id number] /
[2025-01-23 04:56] LABS: African American GFR (CKD) >90 (>60 ml/min/1.73 sqM); Anion Gap 9 mmol/L; Blood Urea Nitrogen 11 mg/dL (7-17); Calcium 10.2 mg/dL (8.4-10.2); Carbon Dioxide 24 mmol/L (22-30); Chloride 106 mmol/L (98-107); Glucose 105 mg/dL (74-99); Non-African American GFR(CKD) 90 (>60 ml/min/1.73 sqM); Potassium 4.1 mmol/L (3.5-5.1); Sodium 139 mmol/L (137-145)
[2025-01-23] MEDS: PANTOPRAZOLE 40 MG TABLET PO SCH (06:44)
[2025-01-23] MEDS: LOSARTAN 50 MG TAB PO SCH (08:33)
[2025-01-23] MEDS: VANCOMYCIN 1,250 MG in SODIUM CHLORIDE 0.9% 250 ML IVPB SCH (10:23)
[2025-01-23 11:10] LABS: Basophils # (A) 0.05 X 10*3/uL (0.00-0.10); Basophils % (A) 0.7 %; Eosinophils # (A) 0.27 X 10*3/uL (0.04-0.35); HCT 35.8 % (37.2-46.3); HGB 11.1 g/dL (12.0-15.0); Lymphocytes # (A) 2.14 X 10*3/uL (0.90-5.00); MCH 28.1 pg (27.0-32.0); MCV 90.6 FL (80.0-97.0); Mean Platelet Volume 10.5 FL (9.5-12.2); Monocytes # (A) 0.62 X 10*3/uL (0.20-1.00); Monocytes % (A) 9.3 %; NRBC Per 100 WBC 0 X 10*3/uL (0.00-0.01); Neutrophils # (A) 3.59 X 10*3/uL (1.80-7.70); Neutrophils % (A) 53.7 %; Platelet Count 435 X 10*3/uL (140-440); RBC 3.95 X 10*6/uL (4.10-5.20); RDW 13.2 % (11.5-14.5); WBC 6.69 X 10*3/uL (4.50-10.00)
--- NOTE | 2025-01-23 12:32 | P.GSCN ---
History of Present Illness Consult date: 01/23/25 Reason for Consult: Right mastectomy infection History of present illness: Is a 69-year-old female who was admitted to the medical service. Patient underwent mastectomy by Dr. Sami Bradshaw approximately 5 weeks ago. Patient was seen in the office on and found to have cellulitis and swelling of the right chest wall. Patient was placed on oral antibiotics. The swelling worsened. Patient was admitted to hospital for right chest wall n. She has had some drainage. Past Medical History Past Medical History: Cancer, Hyperlipidemia, Hypertension, Musculoskeletal Disorder, Osteoarthritis (OA), Thyroid Disorder Additional Past Medical History / Comment(s): Back pain, rightt breast cancer 10/22/24, had mastectomy. osteoporosis. History of Any Multi-Drug Resistant Organisms: None Reported Past Surgical History: Breast Surgery, Hysterectomy, Joint Replacement Additional Past Surgical History / Comment(s): Left hip replacement, colonoscopy, right mastectomy. Past Anesthesia/Blood Transfusion Reactions: No Reported Reaction Past Psychological History: Depression Additional Psychological History / Comment(s): Past history, not current. Smoking Status: Never smoker Past Alcohol Use History: None Reported Past Drug Use History: None Reported - Past Family History Father Family Medical History: COPD Additional Family Medical History / Comment(s): Emphysema- smoker. Medications and Allergies Home Medications Medication Instructions Recorded Confirmed Type Aspirin [Children's Aspirin] 81 mg PO DIRECTED 09/23/24 01/22/25 History Levothyroxine Sodium [Synthroid] 125 mcg PO MOTUTHFRSA 09/23/24 01/22/25 History Losartan Potassium 50 mg PO DAILY 09/23/24 01/22/25 History Simvastatin 40 mg PO HS 09/23/24 01/22/25 History Cephalexin [Keflex] 500 mg PO Q6HR 01/22/25 01/22/25 History Allergies Allergy/AdvReac Type Severity Reaction Status Date / Time No Known Allergies Allergy Verified 01/22/25 10:08 Surgical - Exam Vital Signs Temp Pulse Resp BP Pulse Ox 99.1 F 91 18 146/81 95 01/21/25 18:45 01/21/25 18:45 01/21/25 18:45 01/21/25 18:45 01/21/25 18:45 - General well developed, well nourished, no distress - Eyes PERRL - ENT normal pinna - Neck no masses - Respiratory Right chest wall shows evidence of inflammatory changes which have improved. There is also some purulent drainage. - Abdomen Abdomen: soft Results - Labs 01/23/25 03:57 01/23/25 03:57 Abnormal Lab Results - Last 24 Hours (Table) 01/23/25 01/23/25 Range/Units 03:57 03:57 RBC 3.95 L (4.10-5.20) X 10*6/uL Hgb 11.1 L (12.0-15.0) g/dL Hct 35.8 L (37.2-46.3) % MCHC 31.0 L (32.0-37.0) g/dL Glucose 105 H (74-99) mg/dL Microbiology - Last 24 Hours (Table) 01/21/25 20:04 Blood Culture - Preliminary Blood 01/21/25 19:31 Gram Stain - Preliminary Breast - Right Wound Culture - Preliminary Diabetes panel 01/23/25 Range/Units 03:57 Sodium 139 (137-145) mmol/L Potassium 4.1 (3.5-5.1) mmol/L Chloride 106 (98-107) mmol/L Carbon Dioxide 24 (22-30) mmol/L BUN 11 (7-17) mg/dL Creatinine 0.67 (0.52-1.04) mg/dL Glucose 105 H (74-99) mg/dL Calcium 10.2 (8.4-10.2) mg/dL Calcium panel 01/23/25 Range/Units 03:57 Calcium 10.2 (8.4-10.2) mg/dL Pituitary panel 01/23/25 Range/Units 03:57 Sodium 139 (137-145) mmol/L Potassium 4.1 (3.5-5.1) mmol/L Chloride 106 (98-107) mmol/L Carbon Dioxide 24 (22-30) mmol/L BUN 11 (7-17) mg/dL Creatinine 0.67 (0.52-1.04) mg/dL Glucose 105 H (74-99) mg/dL Calcium 10.2 (8.4-10.2) mg/dL Adrenal panel 01/23/25 Range/Units 03:57 Sodium 139 (137-145) mmol/L Potassium 4.1 (3.5-5.1) mmol/L Chloride 106 (98-107) mmol/L Carbon Dioxide 24 (22-30) mmol/L BUN 11 (7-17) mg/dL Creatinine 0.67 (0.52-1.04) mg/dL Glucose 105 H (74-99) mg/dL Calcium 10.2 (8.4-10.2) mg/dL Assessment and Plan Plan: Postoperative mastectomy infection. Patient is improving with IV antibiotics. Patient to be reevaluated a by Dr. Sami Bradshaw in the a.m.
[2025-01-23] MEDS: VANCOMYCIN TROUGH DUE 1 EACH MISC MISCELLANE ONE (22:43)
--- NOTE | 2025-01-23 22:55 | P.CONS ---
History of Present Illness - Reason for Consult Consult date: 01/23/25 Right breast cellulitis/abscess Requesting physician: Aditya Rodrigez - Chief Complaint Right breast pain swelling and drainage x days - History of Present Illness Patient is a 69-year-old female with a past medical history significant for hypertension hyperlipidemia osteomyelitis recent diagnosis of right breast cancer and is patient was status post mastectomy patient subsequently did have postop fluid collection in the right breast area that has been drained on multiple occasion last time was on 01/20/2025 and the culture did grew MSSA for the patient has been started on oral Keflex however the patient was able to take only 1 or 2 pills and subsequently presented to the hospital with increasing drainage from the right breast area patient did have mild aching pain without any radiation and denies having any high-grade fever or chills no URI symptoms no chest pain shortness of breath or cough no abdominal pain no diarrhea with the symptoms the patient has been evaluated on presentation to the hospital patient did have low-grade fever of 99.1 degrees for night and has been afebrile since then patient was nontachycardic hypotensive or hypoxic or need f or supplemental oxygen patient did have white count 9.3 creatinine 0.77 electrolytes normal liver enzymes normal patient did have local cultures obtained she was started on vancomycin and Rocephin infectious disease was consulted for further management of antibiotic therapy Review of Systems Positive point and negatives has been mentioned in the HPI, complete review of systems was performed and all other systems are negative Past Medical History Past Medical History: Cancer, Hyperlipidemia, Hypertension, Musculoskeletal Disorder, Osteoarthritis (OA), Thyroid Disorder Additional Past Medical History / Comment(s): Back pain, rightt breast cancer 10/22/24, had mastectomy. osteoporosis. History of Any Multi-Drug Resistant Organisms: None Reported Past Surgical History: Breast Surgery, Hysterectomy, Joint Replacement Additional Past Surgical History / Comment(s): Left hip replacement, colonoscopy, right mastectomy. Past Anesthesia/Blood Transfusion Reactions: No Reported Reaction Past Psychological History: Depression Additional Psychological History / Comment(s): Past history, not current. Smoking Status: Never smoker Past Alcohol Use History: None Reported Past Drug Use History: None Reported - Past Family History Father Family Medical History: COPD Additional Family Medical History / Comment(s): Emphysema- smoker. Medications and Allergies Home Medications Medication Instructions Recorded Confirmed Type Aspirin [Children's Aspirin] 81 mg PO DIRECTED 09/23/24 01/22/25 History Levothyroxine Sodium [Synthroid] 125 mcg PO MOTUTHFRSA 09/23/24 01/22/25 History Losartan Potassium 50 mg PO DAILY 09/23/24 01/22/25 History Simvastatin 40 mg PO HS 09/23/24 01/22/25 History Cephalexin [Keflex] 500 mg PO Q6HR 01/22/25 01/22/25 History Allergies Allergy/AdvReac Type Severity Reaction Status Date / Time No Known Allergies Allergy Verified 01/22/25 10:08 Physical Exam Vitals: Vital Signs Temp Pulse Resp BP Pulse Ox FiO2 01/23/25 07:31 98.1 F 70 17 135/79 95 01/23/25 00:10 98.3 F 75 18 141/81 93 L 01/22/25 21:00 18 01/22/25 19:45 98 F 78 18 126/86 96 01/22/25 14:25 97.8 F 85 16 126/73 95 01/22/25 12:40 95 21 Intake and Output 01/22/25 01/23/25 01/23/25 22:59 06:59 14:59 Intake Total 500 Balance 500 Intake: Oral 500 Other: # Voids 2 4 GENERAL DESCRIPTION: Elderly female lying in bed, no distress. No tachypnea or accessory muscle of respiration use. HEENT: Shows Pallor , no scleral icterus. Oral mucous membrane is dry. No pharyngeal erythema or thrush NECK: Trachea central, no thyromegaly. LUNGS: Unlabored breathing. Clear to auscultation anteriorly. No wheeze or crackle. HEART: S1, S2, regular rate and rhythm. No loud murmur ABDOMEN: Soft, no tenderness , guarding or rigidity, no organomegaly EXTREMITIES: No edema of feet. SKIN: Right breast incision is currently healed did have minimal opening on the midline with minimal surrounding redness and drainage NEUROLOGICAL: The patient is awake, alert, oriented x3, mood and affect normal. Results CBC & Chem 7: 01/24/25 03:35 01/24/25 03:35 Labs: Abnormal Lab Results - Last 24 Hours (Table) 01/23/25 01/23/25 Range/Units 03:57 03:57 RBC 3.95 L (4.10-5.20) X 10*6/uL Hgb 11.1 L (12.0-15.0) g/dL Hct 35.8 L (37.2-46.3) % MCHC 31.0 L (32.0-37.0) g/dL Glucose 105 H (74-99) mg/dL Microbiology - Last 24 Hours (Table) 01/21/25 20:04 Blood Culture - Preliminary Blood 01/21/25 19:31 Gram Stain - Preliminary Breast - Right Wound Culture - Preliminary Assessment and Plan (1) Postoperative infection of breast incision Current Visit: Yes Status: Acute Code(s): T81.49XA - INFECTION FOLLOWING A PROCEDURE, OTHER SURGICAL SITE, INIT SNOMED Code(s): 693996323 Plan: 1patient presented to hospital with right mastectomy site drainage in this patient who did have history of aspiration by the surgeon on 01/20/2025 they did grew MSSA and the patient was started on oral Keflex however she already took 1 of 2 pills before presented to hospital with increasing drainage 2-await surgical evaluation for possible further drainage and deep culture 3-we will wait for the culture done in the ER to be finalized before adjusting antibiotic further 4-for now we will treat with Rocephin and vancomycin pharmacy to dose while waiting for the culture to finalize Question concern answered We will follow on clinical condition and cultures to further adjust medication if needed Thank you for this consultation we will follow the patient along with you Dictation was produced using [employer] dictation software. please excuse any grammatical, word or spelling errors. Time with Patient: Greater than 30
--- NOTE | 2025-01-24 00:06 | PN ---
PROGRESS NOTE DATE OF SERVICE: 01/23/2025 SUBJECTIVE: This is a 69-year-old woman, who was admitted with postoperative infection after right mastectomy, is being closely monitored. No chest pain. No palpitation. The patient is on antibiotics. OBJECTIVE: VITAL SIGNS: Pulse 70, blood pressure 130/76, respirations 17. CHEST: Clear to auscultation. CARDIOVASCULAR: S1, S2. ABDOMEN: Soft. BREAST: Right mastectomy infection present. LABORATORY DATA: Reviewed. ASSESSMENT: 1. Status post right mastectomy and postoperative wound infection with increased drainage. 2. Mild hypercalcemia. 3. Hypertension. 4. Hyperlipidemia. RECOMMENDATIONS AND DISCUSSION: Recommend to continue current management and continue symptomatic treatment. Otherwise, cultures are negative so far. The patient is on Rocephin. We will continue to monitor. Guarded prognosis. Further recommendations to follow. Infectious Disease and Surgery has been consulted. MMMARTINEL / YOBANY: [id number] /
[2025-01-24 04:30] LABS: Basophils % (A) 0 %; Eosinophils # (A) 0.2 k/uL (0-0.7); Eosinophils % (A) 3 %; HCT 35.3 % (34.0-46.0); HGB 11.4 gm/dL (11.4-16.0); Lymphocytes # (A) 1.9 k/uL (1.0-4.8); Lymphocytes % (A) 28 %; MCH 28.6 pg (25.0-35.0); MCHC 32.2 g/dL (31.0-37.0); Mean Platelet Volume 8.3; Monocytes # (A) 0.4 k/uL (0-1.0); Monocytes % (A) 7 %; Neutrophils % (A) 60 %; Platelet Count 334 k/uL (150-450); RBC 3.97 m/uL (3.80-5.40); RDW 13.1 % (11.5-15.5); WBC 6.6 k/uL (3.8-10.6)
[2025-01-24 05:06] LABS: African American GFR (CKD) >90 (>60 ml/min/1.73 sqM); Anion Gap 11 mmol/L; Blood Urea Nitrogen 11 mg/dL (7-17); Calcium 10.3 mg/dL (8.4-10.2); Carbon Dioxide 23 mmol/L (22-30); Chloride 106 mmol/L (98-107); Glucose 104 mg/dL (74-99); Non-African American GFR(CKD) >90 (>60 ml/min/1.73 sqM); Potassium 4.1 mmol/L (3.5-5.1); Sodium 140 mmol/L (137-145)
[2025-01-24 05:29] LABS: RBC Morphology Normal
[2025-01-24] MEDS: LEVOTHYROXINE 125 MCG TAB PO SCH (06:40)
--- NOTE | 2025-01-24 11:32 | P.PN ---
Subjective Progress Note Date: 01/24/25 SURGICAL PROGRESS NOTE CHIEF COMPLAINT: Right mastectomy infection HISTORY OF PRESENT ILLNESS: Patient is status post right mastectomy about [address] Sami Brad[address]. Dr[address] Sami Bradshaw is currently out of town. She will be back tonight with plans for surgery tomorrow for possible incision and drainage. Patient reports pain controlled. She reports that the erythema at the incision site is decreased. She is not having drainage currently. Afebrile. WBC 6.6 PHYSICAL EXAM: VITAL SIGNS: Reviewed. GENERAL: Well-developed in no acute distress. Chest: Right chest wall incision site with mild erythema distally to the incision. No significant drainage noted. Area is firm with palpation NEUROLOGIC: Alert and oriented. Cranial nerves II through XII grossly intact. ASSESSMENT: 1. Right postoperative mastectomy infection PLAN: - Continue antibiotics - N.p.o. after midnight for possible debridement with Dr. Sami Bradshaw tomorrow Physician Electrolytic Etcher note has been reviewed by physician. Signing provider agrees with the documented findings, assessment, and plan of care. Objective - Vital Signs Vital signs: Vital Signs Temp 97.4 F L 01/24/25 07:37 Pulse 80 01/24/25 07:37 Resp 18 01/24/25 07:37 BP 127/85 01/24/25 07:37 Pulse Ox 98 01/24/25 07:37 FiO2 21 01/22/25 12:40 Intake & Output 01/23/25 01/24/25 01/24/25 18:59 06:59 18:59 Other: # Voids 3 2 # Bowel Movements 1 - Labs CBC & Chem 7: 01/24/25 03:35 01/24/25 03:35 Labs: Abnormal Lab Results - Last 24 Hours (Table) 01/24/25 Range/Units 03:35 Glucose 104 H (74-99) mg/dL Calcium 10.3 H (8.4-10.2) mg/dL Microbiology - Last 24 Hours (Table) 01/21/25 20:04 Blood Culture - Preliminary Blood 01/21/25 19:31 Gram Stain - Final Breast - Right Wound Culture - Final Staphylococcus aureus
--- NOTE | 2025-01-24 12:16 | P.PN ---
Subjective Progress Note Date: 01/24/25 Principal diagnosis: Reason for follow-up is right chest wall cellulitis/postmastectomy infection Patient is a 69-year-old female with a past medical history significant for hypertension hyperlipidemia osteomyelitis recent diagnosis of right breast cancer and is patient was status post mastectomy patient subsequently did have postop fluid collection in the right breast area that has been drained on multiple occasion last time was on 01/20/2025 and the culture did grew MSSA now presented to hospital with worsening drainage concerning for cellulitis prompted this consultation. On today's evaluation that is 01/24/2025, patient has been afebrile, patient is breathing comfortably and is currently on room air, patient denies having any chest pain and cough, patient denies nausea vomiting or diarrhea and no abdominal pain pain to the right chest has decreased intensity as well as drainage patient white count 6.6, creatinine 0.63 blood culture negative local culture with MSSA Objective - Vital Signs Vital signs: Vital Signs Temp 97.4 F L 01/24/25 07:37 Pulse 80 01/24/25 07:37 Resp 18 01/24/25 07:37 BP 127/85 01/24/25 07:37 Pulse Ox 98 01/24/25 07:37 FiO2 21 01/22/25 12:40 Intake & Output 01/23/25 01/24/25 01/24/25 18:59 06:59 18:59 Other: # Voids 3 2 # Bowel Movements 1 - Exam GENERAL DESCRIPTION: An elderly female lying in bed in no distress RESPIRATORY SYSTEM: Unlabored breathing , decreased breath sounds at bases HEART: S1 S2 regular rate and rhythm , ABDOMEN: Soft , no tenderness EXTREMITIES: No edema feet - Labs CBC & Chem 7: 01/24/25 03:35 01/24/25 03:35 Labs: Abnormal Lab Results - Last 24 Hours (Table) 01/24/25 Range/Units 03:35 Glucose 104 H (74-99) mg/dL Calcium 10.3 H (8.4-10.2) mg/dL Microbiology - Last 24 Hours (Table) 01/21/25 20:04 Blood Culture - Preliminary Blood 01/21/25 19:31 Gram Stain - Final Breast - Right Wound Culture - Final Staphylococcus aureus Assessment and Plan (1) Postoperative infection of breast incision Current Visit: Yes Status: Acute Code(s): T81.49XA - INFECTION FOLLOWING A PROCEDURE, OTHER SURGICAL SITE, INIT SNOMED Code(s): 050385624 (2) MSSA (methicillin susceptible Staphylococcus aureus) infection Current Visit: Yes Status: Acute Code(s): A49.01 - METHICILLIN SUSCEP STAPH INFECTION, UNSP SITE SNOMED Code(s): 092588624 Plan: 1patient presented to hospital with right mastectomy site drainage in this patient who did have history of aspiration by the surgeon on 01/20/2025 they did grew MSSA and the patient was started on oral Keflex however she already took 1 of 2 pills before presented to hospital with increasing drainage 2-patient has been eval by surgery planning for surgical I&D for tomorrow 3-culture have been finalized with MSSA blood culture negative so far vancomycin Rocephin has been discontinued patient started on cefazolin question concern answered Dictation was produced using [employer] dictation software. please excuse any grammatical, word or spelling errors. Time with Patient: Less than 30
--- NOTE | 2025-01-24 20:45 | P.PN ---
Subjective Progress Note Date: 01/24/25 Principal diagnosis: Cellulitis/resolving abscess right mastectomy site Subjective Progress Note Date: 01-24-25 Principal diagnosis: right breast two sites [id number] invasive ductal cancer 7OClock and 8 OClock; 10-11-24 History of Present Illness Consult date: 12/03/24 Reason for Consult: Invasive ductal carcinoma right breast 7:00 and 8 o'clock position Requesting physician: James Ríos History of present illness: Beena is a 69-year-old female seen initially in consultation for Dr. Ríos regarding a biopsy-proven right breast invasive ductal carcinoma. She underwent a bilateral screening mammogram on 09-08-2024. This did not reveal any lesions of concern in the left breast but in the right breast several small masses were identified. An ultrasound was recommended. An ultrasound was performed on 09-14-2024. This revealed multiple lesions at 8:00 2 cm from the nipple thought to represent 3 individual lesions. Irregular mass at 8:00 was noted as well as a probable cluster of cysts at 8:00. Biopsy was recommended of the mass and 6-month follow-up of the other areas. The patient on 10-11-2024 underwent an ultrasound-guided core biopsy of the 7 and 8 o'clock position of the right breast. At the 7 o'clock position there was a 1.1 cm lesion and biopsy of this was consistent with invasive grade 2 ductal carcinoma with focal mucinous features Lesion at 8:00 revealed an 8 mm lobulated lesion and a biopsy of this revealed invasive ductal carcinoma with focal mucinous features. Separate fragment of atypical papillary lesion was identified. A third lesion at 8:00 3 mm was too small to accurately characterize. The biopsy at 7:00 had a butterfly clip against the chest wall placed in the biopsy at 8:00 had a coil clip placed. The lesions are 2.7 cm apart. The radiographs were personally reviewed with Dr. Zaragoza and discussed. She did not feel anything in her breast prior to the mammogram. Had never had any surgery on her breast and no breast biopsies. She was not complaining of any nipple discharge or skin changes. She had not had any recent trauma or infection in her breast. She gets mammograms on a yearly basis. note radiation oncology 11-16-24, ready for surgery and will discuss radiation depending on the final pathology medical oncology: 10-25-24; consider oncotype to determine if will recommend chemotherapy, will recommend adjuvant hormone therapy; oncotype was 6 The patient's had an MRI it revealed that the area of concern in the right breast may span for 5.5 cm. This was discussed with the patient and her family. The patient was initially planning on having a needle localization lumpectomy but then she decided she would like to have a mastectomy. She understands that the MRI may be more sensitive than specific and may actually not to be a 5.5 cm area of tumor however she would still like to proceed with a mastectomy. She was given the option of seeing a plastic surgeon however this would delay her surgery and she would like to have a mastectomy with the option of reconstr uction at a later time but would not like to delay the surgery to see a plastic surgeon. Additionally pre-operatively I discussed with her the possibility of getting an Oncotype and doing neoadjuvant chemotherapy to shrink the tumor and possibly being able to do a lumpectomy and again she declined this possibility. Therefore after discussion with the patient, her , and her daughter, in detail regarding the above she wished to proceed with a right mastectomy, right sentinel node biopsy possible axillary node dissection. The patient on 12 14 24 underwent a right mastectomy and sentinel node biopsy. This was a skin sparing mastectomy secondary to the possibility the patient may want reconstruction in the future. The tumor was noted to be multifocal with at least 2 sites in DCIS. 6 nodes were removed all were negative. The largest tumor site was 4 cm and the second site 18 mm, DCIS was 11 mm. The patient had multiple episodes of seroma development at the mastectomy site. These were aspirated without difficulty. Recently she noticed some erythema at the medial aspect of the mastectomy site and had swelling consistent with a seroma. This was aspirated on 01 20 25 and 125 cc of fluid was aspirated which appeared to be turbid in nature. She was started on an oral antibiotic. This was sent for culture cultures were positive for MSSA. The patient developed some drainage from the incision site and was seen in the emergency department on 01 21 25. She was admitted for IV antibiotic therapy and evaluation. The patient's white count was 6.6, she was afebrile. Blood cultures have been negative. She has been seen and followed by Dr. Gonzales from infectious disease. At this time the patient is doing well. She does have some persistent swelling at the medial aspect of the incision with some persistent drainage. Caffeine: occasional nicotien: none chocolate: daily BCP: used for about < 2 years Family History: maternal grandfather: skin cancer paternal aunt: ? breast cancer Hormonal History: menarche: 11 M1 breast fed: no, age at first : 29 menopause: hysterectomy late 40's too ovaries, no hormones after, done for bleeding Surgical History: CELE BSO left hip replacement Medical History: broke left foot hypothyroid high cholesterol osteoporosis Social History; nicotine: none alcohol: none drugs: none Review of Systems - Constitutional Denies fever, Denies weight loss - EENT Eyes: denies blurred vision Ears: deny: decreased hearing, tinnitus Ears, nose, mouth and throat: Denies dysphagia - Breasts bilateral: as per HPI - Cardiovascular Denies chest pain, Denies shortness of breath - Respiratory Denies cough - Gastrointestinal Reports as per HPI - Genitourinary Genitourinary: Denies dysuria, Denies hematuria Menstruation: Reports post hysterectomy - Musculoskeletal Reports as per HPI - Integumentary Denies rash, Denies unusual bruising - Neurological Denies headaches, Denies syncope - Psychiatric Reports as per HPI - Endocrine Reports as per HPI - Hematologic/Lymphatic Reports as per HPI, Denies easy bleeding, Denies easy bruising Hematologic/Lymphatic Comment(s): takes baby aspirin - Allergic/Immunologic Reports as per HPI Past Medical History Past Medical History: Hyperlipidemia, Hypertension, Osteoarthritis (OA), Thyroid Disorder History of Any Multi-Drug Resistant Organisms: None Reported Past Surgical History: Hysterectomy, Orthopedic Surgery Additional Past Surgical History / Comment(s): Left hip replacement. Past Anesthesia/Blood Transfusion Reactions: No Reported Reaction Past Psychological History: Depression Additional Psychological History / Comment(s): past history, not current Smoking Status: Never smoker Past Alcohol Use History: Rare Past Drug Use History: None Reported Medications and Allergies Home Medications Medication Instructions Recorded Confirmed Type Aspirin [Children's Aspirin] 81 mg PO DAILY 09/23/24 10/22/24 History Cholecalciferol (Vitamin D3) 1,250 mcg PO DAILY 09/23/24 10/22/24 History [Vitamin D3 (1250 Mcg = 50,000 Iu)] Fenofibrate Nanocrystallized 48 mg PO DAILY 09/23/24 10/22/24 History [Fenofibrate] Glucosamine/Chondr Celaya A Sod [Osteo 1 each PO DAILY 09/23/24 10/22/24 History Bi-Flex Caplet] Ibandronate Sodium [Boniva] 150 mg PO QMONTHLY 09/23/24 10/22/24 History Levothyroxine Sodium [Synthroid] 125 mcg PO DAILY 09/23/24 10/22/24 History Losartan Potassium 50 mg PO DAILY 09/23/24 10/22/24 History Simvastatin 40 mg PO DAILY 09/23/24 10/22/24 History Allergies Allergy/AdvReac Type Severity Reaction Status Date / Time No Known Allergies Allergy Verified 10/22/24 10:37 Objective - Vital Signs Vital signs: Vital Signs Temp 97.5 F L 01/24/25 14:00 Pulse 80 01/24/25 14:00 Resp 19 01/24/25 14:00 BP 127/71 01/24/25 14:00 Pulse Ox 99 01/24/25 14:00 FiO2 21 01/22/25 12:40 Intake & Output 01/24/25 01/24/25 01/25/25 06:59 18:59 06:59 Other: # Voids 2 4 # Bowel Movements 1 - Constitutional General appearance: Present: cooperative - EENT Eyes: Present: EOMI ENT: Present: hearing grossly normal - Neck Neck: Present: normal ROM - Respiratory Respiratory: bilateral: CTA - Cardiovascular Rhythm: regular Heart sounds: normal: S1, S2 - Integumentary Integumentary Comment(s): Examination of the right chest wall: Examination of the right mastectomy site reveals some swelling at the medial aspect of the incision with some seropurulent drainage/the erythema has improved - Labs CBC & Chem 7: 01/24/25 03:35 01/24/25 03:35 Labs: Abnormal Lab Results - Last 24 Hours (Table) 01/24/25 Range/Units 03:35 Glucose 104 H (74-99) mg/dL Calcium 10.3 H (8.4-10.2) mg/dL Microbiology - Last 24 Hours (Table) 01/21/25 20:04 Blood Culture - Preliminary Blood 01/21/25 19:31 Gram Stain - Final Breast - Right Wound Culture - Final Staphylococcus aureus Assessment and Plan Assessment: Impression: Resolving right breast cellulitis/abscess following mastectomy on 12 14 24 Plan: After discussion with the patient we are going to do an incision and drainage of the area of persistent fullness and oozing at the right mastectomy site Incision and drainage right mastectomy site abscess Consent: I have discussed the risks, benefits and alternative therapies for the above-mentioned procedure and for both sedation/analgesia as well as necessary blood product administration, if indicated, as they pertain to this patient. The patient has indicated understanding and acceptance of the risks and procedures discussed. CC: James Ríos
--- NOTE | 2025-01-24 23:08 | PN ---
PROGRESS NOTE DATE OF SERVICE: 01/24/2025 SUBJECTIVE: This is a 69-year-old woman, who was admitted after right mastectomy who had a wound infection. The culture showed a staph aureus, which is MSSA. PHYSICAL EXAMINATION: VITAL SIGNS: Pulse is 80, blood pressure 127/71, respirations 19. CHEST: Clear to auscultation. CARDIOVASCULAR: S1, S2. ABDOMEN: Soft. BREASTS: Right breast wound present. LABORATORY DATA: Reviewed. ASSESSMENT: 1. Status post right mastectomy with postoperative wound infection with methicillin- susceptible Staphylococcus aureus. 2. Mild hypercalcemia. 3. Hypertension. 4. Hyperlipidemia. RECOMMENDATIONS: Recommended to continue with current medications, continue with symptomatic treatment. Otherwise, closely follow up with Surgery as well as Infectious Disease. Further recommendations to follow. MMODL / IJN: [id number] /
[2025-01-25] MEDS: IV FLUID CONTINUATION 1,000 ML IV ONE (08:14)
[2025-01-25] MEDS: LACTATED RINGERS 1,000 ML IV SCH (08:16)
[2025-01-25] MEDS ORDERED: fentaNYL (PF) 50 MCG/ML 2 ML AMP ONE (08:31)
[2025-01-25] MEDS ORDERED: KETOROLAC 15 MG/ML 1 ML VIAL ONE (08:31)
[2025-01-25] MEDS ORDERED: PROPOFOL 10 MG/ML 20 ML VIAL IV ONE (08:31)
[2025-01-25] MEDS ORDERED: MIDAZOLAM 2 MG/2 ML VIAL ONE (08:31)
[2025-01-25] MEDS: ONDANSETRON 4 MG/2 ML VIAL IVP ONE (08:34)
[2025-01-25] MEDS: DEXAMETHASONE SOD PHOSPHATE 4 MG/ML 1 ML VIAL IV ONE (08:34)
[2025-01-25] MEDS: ACETAMINOPHEN TAB 500 MG TAB PO STA (08:39)
[2025-01-25] MEDS: CEFAZOLIN IV ONE (09:00)
[2025-01-25] MEDS: SODIUM CHLORIDE 0.9% IV ONE (09:00)
[2025-01-25] MEDS: ceFAZolin 2 GM in DEXTROSE 5% IN WATER 50 ML IVPB SCH (11:05)
[2025-01-25 14:09] VITALS: BP 113/75; PULSE 95; RESP 18; TEMP 97.7
--- NOTE | 2025-01-25 14:15 | P.PN ---
Subjective Progress Note Date: 01/25/25 Principal diagnosis: Reason for follow-up is right chest wall cellulitis/postmastectomy infection Patient is a 69-year-old female with a past medical history significant for hypertension hyperlipidemia osteomyelitis recent diagnosis of right breast cancer and is patient was status post mastectomy patient subsequently did have postop fluid collection in the right breast area that has been drained on multiple occasion last time was on 01/20/2025 and the culture did grew MSSA now presented to hospital with worsening drainage concerning for cellulitis prompted this consultation.Patient is status post surgical I&D of the right mastectomy site completed this morning of 01/25/2025 On today's evaluation 01/25/2025, Patient is afebrile this morning patient denies having any chest pain shortness of breath or cough, the patient is currently on room air, patient denies any abdominal pain no diarrhea no nausea no vomiting, patient is feeling better wants to go home. The patient white count 6.6, creatinine 0.63 local culture with MSSA blood culture negative so far Objective - Vital Signs Vital signs: Vital Signs Temp 97.5 F L 01/25/25 10:46 Pulse 84 01/25/25 10:46 Resp 15 01/25/25 10:46 BP 139/86 01/25/25 10:46 Pulse Ox 100 01/25/25 09:57 FiO2 21 01/22/25 12:40 Intake & Output 01/24/25 01/25/25 01/25/25 18:59 06:59 18:59 Intake Total 240 800 Output Total 2 Balance 240 798 Intake: IV 800 Oral 240 Output: Estimated Blood Loss 2 Other: # Voids 4 5 # Bowel Movements 1 - Exam GENERAL DESCRIPTION: An elderly female lying in bed in no distress RESPIRATORY SYSTEM: Unlabored breathing , decreased breath sounds at bases HEART: S1 S2 regular rate and rhythm , ABDOMEN: Soft , no tenderness EXTREMITIES: No edema feet - Labs CBC & Chem 7: 01/24/25 03:35 01/24/25 03:35 Labs: Microbiology - Last 24 Hours (Table) 01/21/25 20:04 Blood Culture - Preliminary Blood Assessment and Plan (1) Postoperative infection of breast incision Current Visit: Yes Status: Acute Code(s): T81.49XA - INFECTION FOLLOWING A PROCEDURE, OTHER SURGICAL SITE, INIT SNOMED Code(s): 549725355 (2) MSSA (methicillin susceptible Staphylococcus aureus) infection Current Visit: Yes Status: Acute Code(s): A49.01 - METHICILLIN SUSCEP STAPH INFECTION, UNSP SITE SNOMED Code(s): 280045977 Plan: 1patient presented to hospital with right mastectomy site drainage in this patient who did have history of aspiration by the surgeon on 01/20/2025 they did grew MSSA and the patient was started on oral Keflex however she already took 1 of 2 pills before presented to hospital with increasing drainage 2--culture have been finalized with MSSA blood culture negative 3patient is status post surgical debridement of the right mastectomy site wound per discussion with the surgeon wound base looks clean and she was okay for the patient to go home and the patient insisting on going home we will recommend oral Keflex 500 mg p.o. every 6 hours for 10 days on discharge this was discussed with the nurse taking care of the patient Dictation was produced using [employer] dictation software. please excuse any grammatical, word or spelling errors.
--- NOTE | 2025-01-26 13:38 | P.BCAON ---
Date of Procedure: 01/25/25 Preoperative Diagnosis: Abscess right chest wall Postoperative Diagnosis: Same Procedure(s) Performed: Incision and drainage/irrigation abscess right chest wall Anesthesia: TIGRE Surgeon: Renee Caba Estimated Blood Loss (ml): 2 IV fluids (ml): 300 Pathology: none sent Condition: stable Disposition: floor Indications for Procedure: Abscess skin sparing mastectomy site right chest wall Operative Findings: Fluid approximately 50 cc drained from mastectomy site right chest wall/turbid in nature Description of Procedure: Induction of anesthesia the right chest wall was prepped and draped in a sterile fashion. At the most fluctuant part of the incision approximately a 2 cm opening was made. Approximately 50 to 80 cc of turbid fluid was expressed. Cultures were obtained, aerobic anaerobic as well as Gram stain. The wound was irrigated using a liter of saline solution. Following this the wound was packed using a Aquacel silver rope.
== END 2025-01-25 16:10 | disposition home health service (06) | DRG 863 ==
LOC: EC 18:31 → 4SSUR 20:48
PROVIDERS: ADMIT Internal Medicine; ATTEND Internal Medicine
PROC: 0H95XZX Drainage of Chest Skin, External Approach, Diagnostic (ICD-10-PCS; principal; 2025-01-25 08:30)
DX: T81.49XA Infection following a procedure, other surgical site, initial encounter (principal); B95.61 Methicillin susceptible Staphylococcus aureus infection as the cause of diseases classified elsewhere; I10 Essential (primary) hypertension; F32.A Depression, unspecified; N61.0 Mastitis without abscess; E78.5 Hyperlipidemia, unspecified; E83.52 Hypercalcemia; M81.0 Age-related osteoporosis without current pathological fracture; Y83.8 Other surgical procedures as the cause of abnormal reaction of the patient, or of later complication, without mention of misadventure at the time of the procedure; Z96.642 Presence of left artificial hip joint; Z79.82 Long term (current) use of aspirin; Z79.890 Hormone replacement therapy; Z79.899 Other long term (current) drug therapy; Z85.3 Personal history of malignant neoplasm of breast; Z90.11 Acquired absence of right breast and nipple; Z90.710 Acquired absence of both cervix and uterus; Z80.8 Family history of malignant neoplasm of other organs or systems
CPT/HCPCS: 36415; 80048; 80053; 80202; 82565; 83605; 85025; 85610; 85730; 87040; 87070; 87075; 87077; 87186; 87205; 93005; 94760; 96365; 96366; 96375; 99285

== ENCOUNTER → 2025-01-27 | Outpatient (CLI) | payer MEDICARE ==
[2025-01-27 14:35] VITALS: BP 175/91; PULSE 96; RESP 16; TEMP 98.4
--- NOTE | 2025-01-27 14:43 | P.BCPO ---
Progress Note - Text Progress Note Date: 01/27/25 Patient status post I&D of chest wall abscess on 01-25-25. She is doing well at this time. Exam; lungs: clear heart RRR wound chest wall: length: 7 cm width: 3cm depth: 1.5 cm Drainage is moderate full thickness would height: 5 foot 6 inches weight 170 pds. Impression: Patient doing well with healing of chest wall wound Plan: Aquacel silver packing of wound 3 times a week Patient to follow-up in 1 week CC: Khushbu
== END ==
LOC: WWCWWP 14:12
PROVIDERS: ATTEND Surgery
DX: L02.213 Cutaneous abscess of chest wall (principal)

== ENCOUNTER → 2025-02-01 | Outpatient (CLI) | payer MEDICARE ==
--- NOTE | 2025-02-01 08:16 | P.PN ---
Subjective Progress Note Date: 02/01/25 02/01/25 Patient status post I&D of chest wall abscess on 01-25-25. She is doing well at this time. Patient on cephelexin 500 mg QID Exam; lungs: clear heart RRR wound chest wall: dimensions on 01-27-25 length: 7 cm width: 3cm depth: 1.5 cm Drainage is moderate dimensions on 11-03-24 : lebgth: 3 cm witth: 1 cm depth: 1 cm full thickness wound height: 5 foot 6 inches weight 170 pds. Impression: Patient doing well with healing of chest wall wound Plan: Aquacel silver packing of wound 3 times a week Patient to follow-up in 1 week CC: Dr. Ríos
[2025-02-01 08:35] VITALS: BP 128/84; PULSE 89; RESP 17; TEMP 98.1
== END ==
LOC: WWCWWP 07:59
PROVIDERS: ATTEND Surgery
DX: L02.213 Cutaneous abscess of chest wall (principal)

== ENCOUNTER → 2025-02-10 | Outpatient (CLI) | payer MEDICARE ==
[2025-02-10 08:13] VITALS: BP 138/92; PULSE 92; RESP 16; TEMP 97.9
--- NOTE | 2025-02-10 08:38 | P.BCPO ---
Progress Note - Text Progress Note Date: 02/10/25 Patient status post I&D of chest wall abscess on 01-25-25. She is doing well at this time. Patient completed cephelexin 500 mg QID Exam; lungs: clear heart RRR wound chest wall: dimensions on 01-27-25 length: 7 cm width: 3cm depth: 1.5 cm Drainage is moderate dimensions on 11-03-24 : lebgth: 3 cm witth: 1 cm depth: 1cm Tenderness on 02-09-2025 Length: 2 cm Width: 0.5 cm Depth: 0.5 cm Patient does have some decreased mobility of the right arm full thickness wound height: 5 foot 6 inches weight 170 pds. Impression: Patient doing well with healing of chest wall wound Plan: sutures removed from incision Aquacel silver packing of wound 3 times a week Patient to follow-up in 1 week Physical therapy for right arm mobility CC: Dr. Ríos Additional CC's: James Ríos
== END ==
LOC: WWCWWP 08:01
PROVIDERS: ATTEND Surgery
DX: S21.109A Unspecified open wound of unspecified front wall of thorax without penetration into thoracic cavity, initial encounter (principal)

== ENCOUNTER → 2025-02-18 | Outpatient (CLI) | payer MEDICARE ==
[2025-02-18 11:51] VITALS: BP 154/93; PULSE 101; RESP 18; TEMP 97.9
--- NOTE | 2025-02-18 12:13 | P.PN ---
Subjective Progress Note Date: 02/18/25 02/10/25 Patient status post I&D of chest wall abscess on 01-25-25. She is doing well at this time. Patient completed cephelexin 500 mg QID Exam; lungs: clear heart RRR wound chest wall: dimensions on 01-27-25 length: 7 cm width: 3cm depth: 1.5 cm Drainage is moderate dimensions on 11-03-24 : lebgth: 3 cm witth: 1 cm depth: 1cm Tenderness on 02-09-2025 Length: 2 cm Width: 0.5 cm Depth: 0.5 cm 02-18-25 length: 1 cm Width: 0.5 cm Depth: 0.5 cm Patient does have some decreased mobility of the right arm full thickness wound height: 5 foot 6 inches weight 170 pds. Impression: Patient doing well with healing of chest wall wound Incision was reinforced using two 2-0 nylon sutures Plan: Aquacel silver packing of wound 3 times a week Patient to follow-up in 2 week Physical therapy for right arm mobility CC: Dr. Ríos Additional CC's: James Ríos Objective - Vital Signs Vital signs: Vital Signs Temp 97.9 F 02/18/25 11:49 Pulse 101 H 02/18/25 11:49 Resp 18 02/18/25 11:49 BP 154/93 02/18/25 11:49 Pulse Ox 94 L 02/18/25 11:49 FiO2 Intake & Output 02/17/25 02/18/25 02/18/25 18:59 06:59 18:59 Weight 77.111 kg
== END ==
LOC: WWCWWP 10:49
PROVIDERS: ATTEND Surgery
DX: Z48.817 Encounter for surgical aftercare following surgery on the skin and subcutaneous tissue (principal); T81.30XA Disruption of wound, unspecified, initial encounter; Z98.890 Other specified postprocedural states

== ENCOUNTER → 2025-03-04 | Outpatient (CLI) | payer MEDICARE ==
--- NOTE | 2025-03-04 13:15 | P.PN ---
Subjective Progress Note Date: 03/04/25 02/18/25 02/10/25 Patient status post I&D of chest wall abscess on 01-25-25. She is doing well at this time. Patient completed cephelexin 500 mg QID Exam; lungs: clear heart RRR wound chest wall: dimensions on 01-27-25 length: 7 cm width: 3cm depth: 1.5 cm Drainage is moderate dimensions on 11-03-24 : lebgth: 3 cm witth: 1 cm depth: 1cm Tenderness on 02-09-2025 Length: 2 cm Width: 0.5 cm Depth: 0.5 cm 02-18-25 length: 1 cm Width: 0.5 cm Depth: 0.5 cm 03-03-25 length: 1 cm width: 2 mm depth 2 mm Patient does have some decreased mobility of the right arm; this has improved with physical therapy full thickness wound height: 5 foot 6 inches weight 170 pds. Impression: Patient doing well with healing of chest wall wound Incision was reinforced using two 2-0 nylon sutures; will leave sutures in place and put steri strip over area Plan: stop packing/steri strips Patient to follow-up in 1 weeks Physical therapy for right arm mobility CC: Dr. Ríos Additional CC's: James Ríos
[2025-03-04 13:19] VITALS: BP 144/79; PULSE 95; RESP 16; TEMP 97.9
== END ==
LOC: WWCWWP 11:29
PROVIDERS: ATTEND Surgery
DX: L02.213 Cutaneous abscess of chest wall (principal)

== ENCOUNTER → 2025-04-25 | Outpatient (CLI) | payer MEDICARE ==
--- NOTE | 2025-04-25 12:18 | BD ---
EXAMINATION TYPE: Axial Bone Density DATE OF EXAM: 04/25/2025 CLINICAL HISTORY: 70 years old Female. ICD-10 CODE: M81.0 OSTEOPENIA , Additional History: Height: 65.5 Weight: 172 FRAX RISK QUESTIONS: History of Fracture in Adulthood: yes Secondary Osteoporosis: 3. Menopause before 45: yes RISK FACTORS HISTORY OF: Surgery to Spine/Hip(right/left)/Wrist (right/left): left total hip replacement When: 2018 MEDICATIONS: Thyroid Medications: Which medication: Synthroid How Long: over 40 years EXAM MEASUREMENTS: Bone mineral densitometry was performed using the TAPQUAD System. Bone mineral density as measured about the Lumbar spine is: ----- L1-L4(G/cm2): 1.136 T Score Values are as follows: ----- L1: -1.9 ----- L2: -0.8 ----- L3: 0.9 ----- L4: 0.2 ----- L1-L4: -0.4 Z Score Values are as follows: ----- L1: -0.7 ----- L2: 0.4 ----- L3: 2.1 ----- L4: 1.4 ----- L1-L4: 0.9 First dexa at [facility] Bone mineral density about the R hip (g/cm2): 0.755 T Score values are as follows: -----R Neck: -2.4 -----R Total: -2.0 Z Score values are as follows: -----R Neck: -0.9 -----R Total: -0.8 First dexa at [facility] FRAX%s: The graph provided illustrates a 22.3% chance for a major osteoporotic fx and a 5.5% chance f or the hips probability for fx in 10 years time. IMPRESSION: Osteopenia (T Score between -2.5 and -1). There is slightly increased risk of fracture and the patient may be considered for treatment. Re-Screen 2-5 years. NOTE: T-SCORE=SD OF THE YOUNG ADULT MEAN. [facility], , 04/25/2025 12:15 PM
== END | disposition home or self-care (01) ==
LOC: RADBDWWP 10:59
PROVIDERS: ATTEND Internal Medicine Hematology & Oncology
DX: M81.0 Age-related osteoporosis without current pathological fracture (principal); E78.5 Hyperlipidemia, unspecified; E03.9 Hypothyroidism, unspecified; C50.511 Malignant neoplasm of lower-outer quadrant of right female breast; M85.89 Other specified disorders of bone density and structure, multiple sites; Z78.0 Asymptomatic menopausal state
CPT/HCPCS: 77080

== ENCOUNTER → 2025-04-29 | Outpatient (CLI) | payer MEDICARE ==
[2025-04-29 09:09] VITALS: BP 136/79; PULSE 79; RESP 17; TEMP 97.9
--- NOTE | 2025-04-29 09:22 | P.PN ---
Subjective Progress Note Date: 04/29/25 Principal diagnosis: right breast multifocal IDC Principal diagnosis: right breast two sites [id number]+Pr+Her2-G2 invasive ductal cancer 7OClock and 8 OClock; 10-11-24 History of Present Illness Consult date: 04-29-25 Reason for Consult: Invasive ductal carcinoma right breast 7:00 and 8 o'clock position Requesting physician: James Ríos History of present illness: Beena is a 69-year-old female seen in consultation for Dr. Ríos regarding a biopsy-proven right breast invasive ductal carcinoma. She underwent a bilateral screening mammogram on 09-08-2024. This did not reveal any lesions of concern in the left breast but in the right breast several small masses were identified. An ultrasound was recommended. An ultrasound was performed on 09-14-2024. This revealed multiple lesions at 8:00 2 cm from the nipple thought to represent 3 individual lesions. Irregular mass at 8:00 was noted as well as a probable cluster of cysts at 8:00. Biopsy was recommended of the mass and 6-month follow-up of the other areas. The patient on 10-11-2024 underwent an ultrasound-guided core biopsy of the 7 and 8 o'clock position of the right breast. At the 7 o'clock position there was a 1.1 cm lesion and biopsy of this was consistent with invasive grade 2 ductal carcinoma with focal mucinous features Lesion at 8:00 revealed an 8 mm lobulated lesion and a biopsy of this revealed invasive ductal carcinoma with focal mucinous features. Separate fragment of atypical papillary lesion was identified. A third lesion at 8:00 3 mm was too small to accurately characterize. The biopsy at 7:00 had a butterfly clip against the chest wall placed in the biopsy at 8:00 had a coil clip placed. The lesions are 2.7 cm apart. The radiographs were personally reviewed with Dr. Zaragoza and discussed. She did not feel anything in her breast prior to the mammogram. Has never had any surgery on her breast and no breast biopsies. She is not complaining of any nipple discharge or skin changes. She has not had any recent trauma or infection in her breast. She gets mammograms on a yearly basis. The patient's MRI reveals that the area of concern in the right breast may span for 5.5 cm. This was discussed with the patient and her family. The patient was initially planning on having a needle localization lumpectomy but now she would like to have a mastectomy. She understands that the MRI may be more sensitive than specific and may actually not to be a 5.5 cm area of tumor however she would still like to proceed with a mastectomy. She was given the option of seeing a plastic surgeon however this would delay her surgery and she would like to have a mastectomy with the option of reconstruction at a later t joby but would not like to delay the surgery to see a plastic surgeon. Additionally have discussed with her the possibility of getting an Oncotype and doing neoadjuvant chemotherapy to shrink the tumor and possibly being able to do a lumpectomy and again she declined this possibility. Therefore after discussion with the patient, her , and her daughter, in detail regarding the above she wishes to proceed with a right mastectomy, right sentinel node biopsy possible axillary node dissection. Risk and benefits of the procedure were discussed with the patient and her family. Risk include but are not limited to bleeding, infection, reaction to the anesthetic. Additionally the risk of a seroma is discussed. They understand and wish to proceed. I have also recommended a preoperative nerve block and they understand this and will discuss this with anesthesia. The patient underwent a right mastectomy and sentinel node biopsy on 12 14 24. Pathology revealed sentinel node negative for metastatic disease. In the mastectomy specimen there was noted to be multifocal invasive ductal carcinoma with 2 foci of grade 2 invasive ductal carcinoma having mucinous features along with intermediate grade ductal carcinoma in situ. The patient had all margins negative for DCIS and invasive carcinoma. The patient postoperatively developed an abscess on the chest wall requiring debridement on 01 25 25. She subsequently did well and is here for evaluation. she did not have any radiation She is following with Dr. Frost and is on letrazole, and is tolerating it without difficulty, her oncotype was 6 Caffeine: occasional nicotine: none chocolate: daily BCP: used for about < 2 years Family History: maternal grandfather: skin cancer paternal aunt: ? breast cancer Hormonal History: menarche: 11 M1 breast fed: no, age at first : 29 menopause: hysterectomy late 40's too ovaries, no hormones after, done for bleeding Surgical History: CELE BSO left hip replacement right mastectomy and SNB debridement of right chest wall Medical History: broke left foot hypothyroid high cholesterol osteoporosis Social History; nicotine: none alcohol: none drugs: none Review of Systems - Constitutional Denies fever, Denies weight loss - EENT Eyes: denies blurred vision Ears: deny: decreased hearing, tinnitus Ears, nose, mouth and throat: Denies dysphagia - Breasts bilateral: as per HPI - Cardiovascular Denies chest pain, Denies shortness of breath - Respiratory Denies cough - Gastrointestinal Reports as per HPI - Genitourinary Genitourinary: Denies dysuria, Denies hematuria Menstruation: Reports post hysterectomy - Musculoskeletal Reports as per HPI - Integumentary Denies rash, Denies unusual bruising - Neurological Denies headaches, Denies syncope - Psychiatric Reports as per HPI - Endocrine Reports as per HPI - Hematologic/Lymphatic Reports as per HPI, Denies easy bleeding, Denies easy bruising Hematologic/Lymphatic Comment(s): takes baby aspirin - Allergic/Immunologic Reports as per HPI Past Medical History Past Medical History: Hyperlipidemia, Hypertension, Osteoarthritis (OA), Thyroid Disorder History of Any Multi-Drug Resistant Organisms: None Reported Past Surgical History: Hysterectomy, Orthopedic Surgery Additional Past Surgical History / Comment(s): Left hip replacement. Past Anesthesia/Blood Transfusion Reactions: No Reported Reaction Past Psychological History: Depression Additional Psychological History / Comment(s): past history, not current Smoking Status: Never smoker Past Alcohol Use History: Rare Past Drug Use History: None Reported Medications and Allergies Home Medications Medication Instructions Recorded Confirmed Type Aspirin [Children's Aspirin] 81 mg PO DAILY 09/23/24 10/22/24 History Cholecalciferol (Vitamin D3) 1,250 mcg PO DAILY 09/23/24 10/22/24 History [Vitamin D3 (1250 Mcg = 50,000 Iu)] Fenofibrate Nanocrystallized 48 mg PO DAILY 09/23/24 10/22/24 History [Fenofibrate] Glucosamine/Chondr Celaya A Sod [Osteo 1 each PO DAILY 09/23/24 10/22/24 History Bi-Flex Caplet] Ibandronate Sodium [Boniva] 150 mg PO QMONTHLY 09/23/24 10/22/24 History Levothyroxine Sodium [Synthroid] 125 mcg PO DAILY 09/23/24 10/22/24 History Losartan Potassium 50 mg PO DAILY 09/23/24 10/22/24 History Simvastatin 40 mg PO DAILY 09/23/24 10/22/24 History Allergies Allergy/AdvReac Type Severity Reaction Status Date / Time No Known Allergies Allergy Verified 10/22/24 10:37 Objective - Vital Signs Vital signs: Vital Signs Temp 97.9 F 04/29/25 09:06 Pulse 79 04/29/25 09:06 Resp 17 04/29/25 09:06 BP 136/79 04/29/25 09:06 Pulse Ox 95 04/29/25 09:06 FiO2 Intake & Output 04/28/25 04/29/25 04/29/25 18:59 06:59 18:59 Weight 77.111 kg - Constitutional General appearance: Present: cooperative - EENT Eyes: Present: EOMI ENT: Present: hearing grossly normal - Neck Neck: Present: normal ROM - Respiratory Respiratory: bilateral: CTA - Cardiovascular Rhythm: regular Heart sounds: normal: S1, S2 - Integumentary Integumentary: Present: normal turgor - Musculoskeletal Musculoskeletal: Present: gait normal - Psychiatric Psychiatric: Present: A&O x's 3, appropriate affect, intact judgment & insight - Additional findings Additional findings: Breast Exam: BRA: 38C Inspection: Right chest wall incision clean and dry, left breast grade 2 ptosis Palpation: Right chest wall: No evidence of any recurrent cancer Right axilla: No adenopathy of concern Left breast: Multi positional exam no dominant masses or nodules of concern, fibrocystic changes Left axilla: No adenopathy of concern Assessment and Plan Assessment: Impression: Patient status post right mastectomy for multifocal right breast invasive ductal carcinoma Plan: left breast mammogram in August 2025 with appointment at that time Continue letrozole Follow-up with medical oncology Follow-up here in August or sooner any questions or concerns CC: Dr. Ríos
== END ==
LOC: WWCWWP 08:41
PROVIDERS: ATTEND Surgery
DX: C50.911 Malignant neoplasm of unspecified site of right female breast (principal); Z90.11 Acquired absence of right breast and nipple